=== PATIENT | female | born 1970 | race Caucasian/White ===

== ENCOUNTER 2018-08-02 21:30 | Emergency (ER) | payer BC ==
[2018-08-02 21:37] VITALS: BP 125/72; PULSE 87; RESP 18; TEMP 98.3
--- NOTE | 2018-08-02 22:16 | XR ---
EXAMINATION TYPE: XR forearm LT DATE OF EXAM: 08/02/2018 COMPARISON: NONE HISTORY: Bump and abrasion. Pain. TECHNIQUE: 2 views FINDINGS: Radius and ulna appear intact. I see no fracture nor dislocation. Carpal bones are intact. Elbow joint is intact. IMPRESSION: Negative left forearm exam.
--- NOTE | 2018-08-02 22:37 | ED ---
General Adult HPI - General Chief complaint: Extremity Injury, Upper Stated complaint: skin problem Time Seen by Provider: 08/02/18 22:23 Source: patient, RN notes reviewed Mode of arrival: ambulatory Limitations: no limitations - History of Present Illness Initial comments: Patient 48-year-old male presented to the emergency room today with chief of injury to the left forearm that occurred earlier today. She has not that she was walking up some stairs she slipped and she hit her left forearm on the railing per she states she noticed that it did swell up. She states it is locally tender. She states swelling has improved. She denies any other injury or complaint. Patient denies any recent fever, chills, shortness of breath, chest pain, back pain, abdominal pain, nausea or vomiting, headache, visual change. - Related Data Home Medications Medication Instructions Recorded Confirmed Ferrous Sulfate [Iron] 325 mg PO DAILY 08/02/18 08/02/18 Ibuprofen 800 mg PO TID-W/MEALS 08/02/18 08/02/18 Allergies Allergy/AdvReac Type Severity Reaction Status Date / Time ceftibuten [From Cedax] Allergy Unknown Verified 08/02/18 21:52 fluticasone propionate Allergy Unknown Verified 08/02/18 21:52 [From Advair Diskus] salmeterol xinafoate Allergy Unknown Verified 08/02/18 21:52 [From Advair Diskus] Review of Systems ROS Statement: Those systems with pertinent positive or pertinent negative responses have been documented in the HPI. ROS Other: All systems not noted in ROS Statement are negative. Past Medical History Past Medical History: No Reported History Additional Past Medical History / Comment(s): ARTHRITIS History of Any Multi-Drug Resistant Organisms: None Reported Past Surgical History: Cholecystectomy Past Psychological History: No Psychological Hx Reported Smoking Status: Current every day smoker Past Alcohol Use History: Occasional Past Drug Use History: None Reported General Exam - General Exam Comments Initial Comments: General: The patient is awake and alert, in no distress, and does not appear acutely ill. Neck: The neck is supple, there is no tenderness or JVD. Musculoskeletal: Patient does have bruising to the posterior mid shaft of the left forearm. Shows full range of motion. There is no bony tenderness to the left wrist hand, or elbow or shoulder. Patient locally tender over the bruise mid shaft. Radial pulses 2+. Strength 5/5. Full Range motion. Neurological: A&O x 3. CN II-XII intact, There are no obvious motor or sensory deficits. Coordination appears grossly intact. Speech is normal. Skin: Skin is warm and dry and no rashes or lesions are noted. Psychiatric: Normal mood and affect. Limitations: no limitations Course Vital Signs 08/02/18 21:33 Temperature 98.3 F Pulse Rate 87 Respiratory 18 Rate Blood Pressure 125/72 O2 Sat by Pulse 100 Oximetry Medical Decision Making - Medical Decision Making X-ray reviewed negative for any acute fracture dislocation. Results were discussed with patient. She is advised follow-up in 7-10 days if symptoms persist for repeat x-rays. Disposition Clinical Impression: Contusion of forearm, left Disposition: HOME SELF-CARE Condition: Good Instructions: Contusion in Adults (ED) Additional Instructions: Please continue to ice elevate the affected area. Please use Tylenol/ibuprofen as needed for pain. Please follow-up in 7-10 days for repeat x-rays if symptoms persist. Is patient prescribed a controlled substance at d/c from ED?: No Referrals: Alberto Merino MD [Primary Care Provider] - 1-2 days Time of Disposition: 22:37
== END 2018-08-02 22:42 | disposition home or self-care (01) ==
LOC: EC 21:30
DX: S50.12XA Contusion of left forearm, initial encounter (principal); M19.90 Unspecified osteoarthritis, unspecified site; F17.200 Nicotine dependence, unspecified, uncomplicated; Z88.1 Allergy status to other antibiotic agents; Z88.8 Allergy status to other drugs, medicaments and biological substances; Z79.1 Long term (current) use of non-steroidal anti-inflammatories (NSAID); Z79.899 Other long term (current) drug therapy; W01.198A Fall on same level from slipping, tripping and stumbling with subsequent striking against other object, initial encounter; Y93.01 Activity, walking, marching and hiking; Y92.009 Unspecified place in unspecified non-institutional (private) residence as the place of occurrence of the external cause
CPT/HCPCS: 99283

== ENCOUNTER 2018-12-22 12:06 | Inpatient (IN) | payer BC ==
[2018-12-22] MEDS ORDERED: HEPARIN SODIUM,PORCINE 5,000 UNIT/ML 1 ML VIAL SQ STA (12:30)
[2018-12-22] MEDS ORDERED: ASPIRIN 81 MG PO STA (12:30)
[2018-12-22] MEDS ORDERED: TICAGRELOR 90 MG TAB PO STA (12:31)
[2018-12-22] MEDS ORDERED: ATORVASTATIN 80 MG TAB PO STA (12:31)
[2018-12-22] MEDS ORDERED: ONDANSETRON 4 MG/2 ML VIAL IVP STA (12:32)
[2018-12-22] MEDS ORDERED: SODIUM CHLORIDE 0.9% 500 ML 500 ML IV STA (12:34)
--- NOTE | 2018-12-22 12:37 | ED ---
General Adult HPI - General Chief complaint: Chest Pain Stated complaint: Chest pain Time Seen by Provider: 12/22/18 12:13 Source: patient Mode of arrival: ambulatory Limitations: no limitations - History of Present Illness Initial comments: Dictation was produced using [employer] dictation software. please excuse any grammatical, word or spelling errors. Chief Complaint: 48-year-old female presents with 30 minutes of chest pain prior to arrival. History of Present Illness: This is a 48-year-old female presents with 30 minutes of chest pain prior to arrival. Patient states that her pain is crushing substernal chest pressure with radiation to the right shoulder. She states that the pain goes down her left upper extremity. Patient reports that she also has some diaphoresis and nausea. Patient states that her symptoms are very severe. The ROS documented in this emergency department record has been reviewed and confirmed by me. Those systems with pertinent positive or negative responses have been documented in the HPI. All other systems are other negative and/or noncontributory. PHYSICAL EXAM: General Impression: Alert and oriented x3, acute distress, clammy HEENT: Normocephalic atraumatic, extra-ocular movements intact, pupils equal and reactive to light bilaterally, mucous membranes moist. Cardiovascular: Heart regular rate and rhythm, S1&S2 audible, no murmurs, rubs or gallops Chest: Lungs clear to auscultation bilaterally, no rhonchi, no wheeze, no rales Abdomen: Bowel sounds present, abdomen soft, non-tender, non-distended, no organomegaly Musculoskeletal: Pulses present and equal in all extremities, no peripheral edema Motor: Power 5/5 bilaterally, no focal deficits noted Neurological: CN II-XII grossly intact, no focal motor or sensory deficits noted Skin: Intact with no visualized rashes Psych: Normal affect and mood ED course: 48 y Old female with symptoms of acute coronary syndrome. Upon arrival are within acceptable limits. EKG shows inferior elevation OK. Posterior EKG did not show any posterior OK. There is reciprocal changes in the high lateral and anterior precordial leads. Old STEMI was paged. Patient given aspirin and 4000 bolus heparin. Patient be dispositioned to cardiac [facility] for coronary artery angiogram and possible angioplasty. - Related Data Home Medications Medication Instructions Recorded Confirmed Ferrous Sulfate [Iron] 325 mg PO DAILY 08/02/18 08/02/18 Ibuprofen 800 mg PO TID-W/MEALS 08/02/18 08/02/18 Allergies Allergy/AdvReac Type Severity Reaction Status Date / Time ceftibuten [From Cedax] Allergy Unknown Verified 12/22/18 12:11 fluticasone propionate Allergy Unknown Verified 12/22/18 12:11 [From Advair Diskus] salmeterol xinafoate Allergy Unknown Verified 12/22/18 12:11 [From Advair Diskus] Review of Systems ROS Statement: Those systems with pertinent positive or pertinent negative responses have been documented in the HPI. ROS Other: All systems not noted in ROS Statement are negative. Past Medical History Past Medical History: No Reported History Additional Past Medical History / Comment(s): ARTHRITIS History of Any Multi-Drug Resistant Organisms: None Reported Past Surgical History: Cholecystectomy Past Psychological History: No Psychological Hx Reported Smoking Status: Current every day smoker Past Alcohol Use History: Occasional Past Drug Use History: None Reported General Exam Limitations: no limitations Course Vital Signs 12/22/18 12:09 Temperature 97.7 F Pulse Rate 66 Respiratory 24 Rate Blood Pressure 142/84 O2 Sat by Pulse 99 Oximetry Disposition Clinical Impression: ST elevation myocardial infarction (STEMI) Disposition: ADMITTED IP TO THIS HOSP Condition: Critical Referrals: Alberto Merino MD [Primary Care Provider] - 1-2 days Decision Time: 12:40
[2018-12-22] MEDS ORDERED: NALOXONE 0.4 MG/ML 1 ML VIAL IV PRN (12:38)
[2018-12-22] MEDS ORDERED: fentaNYL (PF) 50 MCG/ML 2 ML AMP ONE (12:51)
[2018-12-22] MEDS ORDERED: LIDOCAINE 2% INJ 20 MG/ML SQ ONE (12:55)
[2018-12-22] MEDS ORDERED: MIDAZOLAM 2 MG/2 ML VIAL IVP ONE (12:55)
[2018-12-22] MEDS ORDERED: fentaNYL (PF) 50 MCG/ML 2 ML AMP IVP ONE (12:55)
[2018-12-22] MEDS ORDERED: SODIUM CHLORIDE 0.9% 1,000 ML IV ONE (12:56)
[2018-12-22 12:59] LABS: Basophils % (A) 0 %; Eosinophils # (A) 0.4 k/uL (0-0.7); Eosinophils % (A) 5 %; HCT 38.2 % (34.0-46.0); HGB 12.9 gm/dL (11.4-16.0); Lymphocytes # (A) 1.2 k/uL (1.0-4.8); Lymphocytes % (A) 18 %; MCH 28.6 pg (25.0-35.0); MCHC 33.7 g/dL (31.0-37.0); MCV 84.9 fL (80.0-100.0); Mean Platelet Volume 6.6; Monocytes # (A) 0.3 k/uL (0-1.0); Monocytes % (A) 4 %; Neutrophils # (A) 4.7 k/uL (1.3-7.7); Neutrophils % (A) 70 %; Platelet Count 223 k/uL (150-450); RDW 13.4 % (11.5-15.5); WBC 6.7 k/uL (3.8-10.6)
[2018-12-22] MEDS ORDERED: NITROGLYCERIN SL TABS 0.4 MG TAB SUBLINGUAL ONE (13:05)
[2018-12-22] MEDS ORDERED: NITROGLYCERIN 1000MCG/10ML SYRINGE INTRACORON ONE ×2 (13:06)
[2018-12-22 13:08] LABS: ALT 26 U/L (9-52); AST 16 U/L (14-36); Albumin 4.1 g/dL (3.5-5.0); Alkaline Phosphatase 53 U/L (38-126); Anion Gap 9 mmol/L; Blood Urea Nitrogen 14 mg/dL (7-17); Calcium 9.3 mg/dL (8.4-10.2); Carbon Dioxide 21 mmol/L (22-30); Chloride 109 mmol/L (98-107); Glucose 132 mg/dL (74-99); Potassium 3.4 mmol/L (3.5-5.1); Sodium 139 mmol/L (137-145); Total Bilirubin 0.8 mg/dL (0.2-1.3); Total Protein 6.9 g/dL (6.3-8.2)
[2018-12-22 13:17] LABS: Creatine Kinase 80 U/L (30-135)
[2018-12-22] MEDS ORDERED: NITROGLYCERIN-D5W PMX 50 MG in DEXTROSE/WATER 1 250ML.BAG IV ONE (13:22)
[2018-12-22] MEDS ORDERED: IOPAMIDOL-370 150ML BTL INJ ONE (13:26)
[2018-12-22 13:30] LABS: Creatine Kinase MB 0.7 ng/mL (0.0-2.4); Troponin I <0.012 ng/mL (0.000-0.034)
[2018-12-22] MEDS ORDERED: RX INFO: IV CONTRAST WAS GIVEN 1 EACH MISC MISCELLANE PRN (13:30)
[2018-12-22 13:32] LABS: INR 0.9 (<1.2); Prothrombin Time 9.7 sec (9.0-12.0)
[2018-12-22 13:37] LABS: Partial Thromboplastin Time 19.5 sec (22.0-30.0)
[2018-12-22 13:52] LABS: Glucose,Whole Blood 112 mg/dL (75-99)
--- NOTE | 2018-12-22 14:00 | CONS ---
CONSULTATION Mrs. Mijares is a 48-year-old female who started having a chest discomfort about 1 hour prior to coming to the emergency room. The pain was moderate to severe, associated with some nausea. In the emergency room, patient's EKG showed mild J-point elevation and minimal ST elevation in the inferior leads and with some ST depression in V2 and V3 suggestive of acute inferior wall myocardial infarction. In view of that, the patient was recommended to have a cardiac catheterization for definitive diagnosis. Patient denies any history of diabetes or hypertension. She does smoke. She is not taking any other medications other than the pain medications. PAST MEDICAL HISTORY: No history of any major surgeries. REVIEW OF THE SYSTEM: Unremarkable. Denies any history of a GI or bleeding or stroke or seizures. PHYSICAL EXAMINATION: In the emergency room revealed the patient is a 48-year-old female who was in moderate to severe discomfort. Blood pressure was 150/80 mmHg. HEENT examination was negative. Neck was supple. There was no increase in jugular venous pressure. Both the carotid pulses are felt. There is no bruit. Chest is symmetrical, heart the PMI is not felt. First and second heart sounds are normal. There is no evidence of any murmur. Lungs are clinically clear to auscultation and percussion. Abdomen is soft. Liver and spleen are not enlarged. Bowel sounds are heard. Extremities, peripheral pulsations are 2+. EKG showed mild ST-segment elevation with ST depression in V2 and V3. IMPRESSION: Acute inferior wall myocardial infarction. Patient was recommended to proceed with a cardiac catheterization and primary angioplasty. MMODL / IJN: [id number] /
--- NOTE | 2018-12-22 14:07 | CC ---
CARDIAC CATHETERIZATION REPORT This patient came to the emergency room with a acute inferior wall myocardial infarction and was advised urgent cardiac catheterization. PROCEDURE: The right groin was prepped and draped in the usual manner and the skin was infiltrated with 2% Xylocaine. The right femoral artery was entered using Seldinger technique, a #6- [place] sheath was placed in. Selective coronary angiography was then performed in multiple projections and the left ventriculography was performed. Patient tolerated the procedure well. Sheath was removed and good hemostasis was achieved with the use of Angio-Seal. Moderate sedation was used. Total sedation time was 24 minutes. HEMODYNAMICS: The left ventricular end-diastolic pressure is 12 mmHg prior to angiography. No gradient is noted across the aortic valve. SELECTIVE CORONARY ANGIOGRAPHY: Left main coronary artery is normal and patent. LAD is a good caliber blood vessel and gives rise to a good size diagonal branch. LAD and its branches are normal. Circumflex coronary artery is a nondominant blood vessel. It gives rise to a good size obtuse marginal branch and is normal. Right coronary artery is dominant in distribution and gives rise to PDA and PLV branch. The PLV branch has a long area of smooth narrowing. Patient was given intracoronary nitroglycerin x2 and repeat angiogram still showed persistent long area of narrowing which raised the possibility of a possible spontaneous dissection. There was YENY-3 flow. Left ventriculography reveals inferior basal hypokinesia with ejection fraction of 55%. FINAL IMPRESSION: This study shows a long area of 90% smooth narrowing in the PLV branch of the right coronary artery. This narrowing persisted in spite of the intravenous nitroglycerin. The films were reviewed with Dr. Paul Rodriguez. A possibility of spontaneous dissection was considered in view that this is a young woman. There was a YENY grade flow. Patient's pain is the patient is pain-free at present and the EKG changes are resolved in view of that, we will continue the patient on medical treatment and serial EKGs. Cardiac enzymes will be obtained. We will treat the patient with nitroglycerin aspirin and Plavix. MMODL / IJN: [id number] /
[2018-12-22 14:32] VITALS: BMI 27.3
[2018-12-22] MEDS: NITROGLYCERIN-D5W PMX 50 MG in DEXTROSE/WATER 1 250ML.BAG IV SCH (14:50)
--- NOTE | 2018-12-22 15:47 | P.HPIM ---
History of Present Illness H&P Date: 12/22/18 Chief Complaint: Angina This is a 48-year-old white female with known history of tobacco abuse who had sudden onset of angina with shortness of breath. Radiation to the neck and jaw area was noted. She was immediately evaluated in the emergency room found to have ST elevation myocardial infarctions and had cardiac catheterization which did not show any dominant lesion. The patient is felt to have vasospastic element. She is now seen postoperatively and doing quite well hemodynamically stable. I saw the patient actually last week with her and she was fairly stable without symptomatology. There was no provocative or palliative description given. Review of Systems Constitutional: Denies chills, Denies fever Eyes: denies blurred vision, denies pain Ears, nose, mouth and throat: Denies headache, Denies sore throat Cardiovascular: Reports chest pain, Reports dyspnea on exertion Respiratory: Denies cough Gastrointestinal: Denies abdominal pain, Denies diarrhea, Denies nausea, Denies vomiting Genitourinary: Reports as per HPI Musculoskeletal: Denies myalgias Past Medical History Past Medical History: No Reported History, Skin Disorder Additional Past Medical History / Comment(s): ARTHRITIS, Exzema History of Any Multi-Drug Resistant Organisms: None Reported Past Surgical History: Cholecystectomy, Tubal Ligation Additional Past Surgical History / Comment(s): 12/22/18 Came in as a stemi--no intervention required during heart cath Past Anesthesia/Blood Transfusion Reactions: No Reported Reaction Smoking Status: Current every day smoker - Past Family History Mother History Unknown: Yes Brother(s) History Unknown: Yes Family Medical History: No Reported History Medications and Allergies Home Medications Medication Instructions Recorded Confirmed Type Ferrous Sulfate [Iron] 325 mg PO DAILY 08/02/18 12/22/18 History Ibuprofen 800 mg PO TID-W/MEALS 08/02/18 12/22/18 History Allergies Allergy/AdvReac Type Severity Reaction Status Date / Time ceftibuten [From Cedax] Allergy Unknown Verified 12/22/18 14:30 fluticasone propionate Allergy Unknown Verified 12/22/18 14:30 [From Advair Diskus] salmeterol xinafoate Allergy Unknown Verified 12/22/18 14:30 [From Advair Diskus] Physical Exam Vitals: Vital Signs Temp Pulse Resp BP Pulse Ox 12/22/18 15:00 71 12 138/76 98 12/22/18 14:45 74 13 140/82 97 12/22/18 14:30 67 8 L 146/79 95 12/22/18 14:15 66 8 L 141/82 96 12/22/18 14:00 68 18 127/79 98 12/22/18 13:45 97.5 F L 74 12 135/81 98 12/22/18 12:09 97.7 F 66 24 142/84 99 Intake and Output 12/22/18 12/22/18 12/22/18 06:59 14:59 22:59 Intake Total 146 20 Output Total 600 Balance 146 -580 Intake: IV 146 20 0.9 NS 40 20 Output: Urine 600 Other: Weight 70.307 kg - Constitutional General appearance: cooperative, obese - EENT Eyes: EOMI - Neck Neck: no lymphadenopathy - Respiratory Respiratory: bilateral: CTA - Cardiovascular Rhythm: regular Heart sounds: normal: S1, S2 Abnormal Heart Sounds: no S3 Gallop - Gastrointestinal General gastrointestinal: soft, no tenderness - Neurologic Neurologic: CNII-XII intact - Musculoskeletal Musculoskeletal: strength equal bilaterally - Psychiatric Psychiatric: A&O x's 3, appropriate affect, no intact judgment & insight Results CBC & Chem 7: 12/22/18 12:53 12/22/18 12:53 Labs: Abnormal Lab Results - Last 24 Hours (Table) 12/22/18 12/22/18 12/22/18 Range/Units 12:53 12:53 13:40 APTT 19.5 L (22.0-30.0) sec Potassium 3.4 L (3.5-5.1) mmol/L Chloride 109 H (98-107) mmol/L Carbon Dioxide 21 L (22-30) mmol/L Glucose 132 H (74-99) mg/dL POC Glucose (mg/dL) 112 H (75-99) mg/dL Troponin I (0.000-0.034) ng/mL 12/22/18 Range/Units 13:46 APTT (22.0-30.0) sec Potassium (3.5-5.1) mmol/L Chloride (98-107) mmol/L Carbon Dioxide (22-30) mmol/L Glucose (74-99) mg/dL POC Glucose (mg/dL) (75-99) mg/dL Troponin I 2.280 H* (0.000-0.034) ng/mL Thrombosis Risk Factor Assmnt - Choose All That Apply Each Factor Represents 1 point: Medical pt on bed rest Other Risk Factors: No Other congenital or acquired thrombophilia - If yes, enter type in comment: No Thrombosis Risk Factor Assessment Total Risk Factor Score: 1 Thrombosis Risk Factor Assessment Level: Low Risk Assessment and Plan (1) Tobacco abuse Current Visit: Yes Status: Acute Code(s): Z72.0 - TOBACCO USE SNOMED Code( s): 927932455 (2) ST elevation myocardial infarction (STEMI) Current Visit: Yes Status: Acute Code(s): I21.3 - ST ELEVATION (STEMI) MYOCARDIAL INFARCTION OF [facility] SITE SNOMED Code(s): 238849689 Plan: Post myocardial infraction treatment. Appreciate cardiology input. Check CBC and CMP in a.m. Tobacco cessation discussed at length. Reconcile medications as necessary. Dr. Christian's group will be covering for the weekend. Time with Patient: Greater than 30
[2018-12-22] MEDS ORDERED: ACETAMINOPHEN TAB 325 MG TAB PO PRN (18:13)
[2018-12-22] MEDS ORDERED: Potassium Replacement Protocol 1 EACH MISC MISCELLANE PRN (20:25)
[2018-12-22] MEDS: METOPROLOL TARTRATE 25 MG TAB PO SCH (20:37)
[2018-12-22] MEDS: POTASSIUM CHLORIDE ER 20 MEQ TAB.ER PO SCH ×2 (20:37→22:01)
[2018-12-22] MEDS: NICOTINE 14MG/24HR PATCH TRANSDERM SCH (20:38)
[2018-12-23 05:39] LABS: Basophils % (A) 1 %; Eosinophils # (A) 0.3 k/uL (0-0.7); Eosinophils % (A) 6 %; HCT 33.9 % (34.0-46.0); Lymphocytes # (A) 1.2 k/uL (1.0-4.8); Lymphocytes % (A) 19 %; MCH 28.6 pg (25.0-35.0); MCHC 32.6 g/dL (31.0-37.0); MCV 87.9 fL (80.0-100.0); Mean Platelet Volume 7.3; Monocytes # (A) 0.4 k/uL (0-1.0); Monocytes % (A) 7 %; Neutrophils # (A) 4.1 k/uL (1.3-7.7); Neutrophils % (A) 67 %; Platelet Count 194 k/uL (150-450); RBC 3.85 m/uL (3.80-5.40); RDW 13.8 % (11.5-15.5); WBC 6.1 k/uL (3.8-10.6)
[2018-12-23 05:47] LABS: Anion Gap 4 mmol/L; Blood Urea Nitrogen 12 mg/dL (7-17); Calcium 8.6 mg/dL (8.4-10.2); Carbon Dioxide 24 mmol/L (22-30); Chloride 110 mmol/L (98-107); Glucose 90 mg/dL (74-99); Potassium 3.8 mmol/L (3.5-5.1); Sodium 138 mmol/L (137-145)
[2018-12-23] MEDS ORDERED: Potassium Replacement Protocol 1 EACH MISC MISCELLANE PRN (05:57)
[2018-12-23] MEDS ORDERED: POTASSIUM CHLORIDE ER 20 MEQ TAB.ER PO SCH (06:00)
[2018-12-23] MEDS: NICOTINE 14MG/24HR PATCH TRANSDERM SCH (08:16)
[2018-12-23] MEDS: ASPIRIN 81 MG PO SCH (08:16)
[2018-12-23] MEDS: TICAGRELOR 90 MG TAB PO SCH ×2 (08:16→20:44)
[2018-12-23] MEDS: METOPROLOL TARTRATE 25 MG TAB PO SCH ×2 (08:16→20:44)
--- NOTE | 2018-12-23 10:28 | ECHOF ---
Referral Reason:assess lvf MEASUREMENTS -------- HEIGHT: 165.1 cm WEIGHT: 70.3 kg BP: 141/82 IVSd: 0.9 cm (0.6 - 1.1) LVIDd: 3.8 cm (3.9 - 5.3) LVPWd: 1.0 cm (0.6 - 1.1) IVSs: 1.1 cm LVIDs: 3.2 cm LVPWs: 1.1 cm LAESV Index (A-L): 18.77 ml/m Ao Diam: 3.0 cm (2.0 - 3.7) AV Cusp: 1.4 cm (1.5 - 2.6) LA Diam: 2.2 cm (2.7 - 3.8) EPSS: 1.0 cm MV E Juan Pablo: 0.98 m/s MV DecT: 237 ms MV A Juan Pablo: 1.18 m/s MV E/A Ratio: 0.83 RAP: 5.00 mmHg RVSP: 22.15 mmHg MV EF SLOPE: 44.50 mm/s (70 - 150) MV EXCURSION: 1.29 cm (> 18.000) FINDINGS -------- Sinus rhythm. This was a technically difficult study with suboptimal views. The left ventricular size is normal. Left ventricular wall thickness is normal. Overall left vent ricular systolic function is low-normal with, an EF between 50 - 55 %. Basal inferior LV wall motio n is hypokinetic. Basal Posterior hypokinesis The RV was not well visualized. Normal LA size by volume 22+/-6 ml/m2. The right atrium was not well visualized. 3 ml of Lumason was utilized for enhancement of images. Aortic valve is trileaflet and is mildly thickened. Trace to mild aortic regurgitation. There is no evidence of aortic stenosis. The mitral valve leaflets are mildly thickened. There is trace to mild mitral regurgitation. Trace tricuspid regurgitation present. Right ventricular systolic pressure is normal at < 35 mmHg. There is no evidence of pulmonary hypertension. The pulmonic valve was not well visualized. The aortic root size is normal. Normal inferior vena cava with normal inspiratory collapse consistent with estimated right atrial pre ssure of 5 mmHg. There is a trivial pericardial effusion present. CONCLUSIONS -------- 1. Sinus rhythm. 2. This was a technically difficult study with suboptimal views. 3. The left ventricular size is normal. 4. Left ventricular wall thickness is normal. 5. Basal inferior LV wall motion is hypokinetic. 6. Basal Posterior hypokinesis 7. The RV was not well visualized. 8. Normal LA size by volume 22+/-6 ml/m2. 9. The right atrium was not well visualized. 10. 3 ml of Lumason was utilized for enhancement of images. 11. Aortic valve is trileaflet and is mildly thickened. 12. Trace to mild aortic regurgitation. 13. There is no evidence of aortic stenosis. 14. The mitral valve leaflets are mildly thickened. 15. There is trace to mild mitral regurgitation. 16. Trace tricuspid regurgitation present. 17. Right ventricular systolic pressure is normal at < 35 mmHg. 18. There is no evidence of pulmonary hypertension. 19. The pulmonic valve was not well visualized. 20. The aortic root size is normal. 21. There is a trivial pericardial effusion present. BOAT REPAIRER: Edson Coyle RDCS
--- NOTE | 2018-12-23 12:59 | PN ---
PROGRESS NOTE This patient came with acute inferior wall myocardial infarction. Patient's cardiac catheterization was suggestive of spontaneous coronary dissection. Patient's EKG was normalized and she was chest pain free. In view of that, medical treatment was recommended. Patient is doing well. She denies any chest pain or shortness of breath. EKG shows resolution of ST changes. Patient's blood pressure is 131/59 mmHg. First and second heart sounds are normal. Lungs are clear to auscultation and percussion. Right groin is normal. Patient's maximum troponin was 23. PLAN: We will continue the current medications. Echocardiogram shows a small area of inferior basal hypokinesia. If patient remains pain free, we will continue the patient on medical treatment and follow with a stress test as outpatient. MMODL / IJN: [id number] /
[2018-12-23] MEDS: NITROGLYCERIN-D5W PMX 50 MG in DEXTROSE/WATER 1 250ML.BAG IV SCH (20:06)
[2018-12-23] MEDS: ATORVASTATIN 40 MG TAB PO SCH (20:44)
--- NOTE | 2018-12-23 22:20 | P.PN ---
Subjective Progress Note Date: 12/23/18 Principal diagnosis: chest pain This is a 48-year-old white female with known history of tobacco abuse who had sudden onset of angina with shortness of breath. Radiation to the neck and jaw area was noted. She was immediately evaluated in the emergency room found to have ST elevation myocardial infarctions and had cardiac catheterization which did not show any dominant lesion. The patient is felt to have vasospastic element. She is now seen postoperatively and doing quite well hemodynamically stable. I saw the patient actually last week with her and she was fairly stable without symptomatology. Objective - Vital Signs Vital signs: Vital Signs Temp 97.8 F 12/23/18 04:00 Pulse 66 12/23/18 08:00 Resp 17 12/23/18 08:00 BP 126/79 12/23/18 08:00 Pulse Ox 98 12/23/18 08:17 Intake & Output 12/22/18 12/23/18 12/23/18 18:59 06:59 18:59 Intake Total 206 520 20 Output Total 1100 250 Balance -894 270 20 Weight 70.307 kg 73.2 kg Intake: IV 206 320 20 0.9 NS 100 320 20 Oral 200 Output: Urine 1100 250 Other: Voiding Method Bedpan Bedside Commode # Voids 1 - Constitutional General appearance: Present: no acute distress - EENT Eyes: Present: EOMI, PERRLA - Neck Neck: Present: normal ROM - Respiratory Respiratory: bilateral: CTA - Cardiovascular Rhythm: regular Heart sounds: normal: S1, S2 - Gastrointestinal General gastrointestinal: Present: soft - Labs CBC & Chem 7: 12/23/18 05:24 12/23/18 05:24 Labs: Abnormal Lab Results - Last 24 Hours (Table) 12/22/18 12/22/18 12/22/18 Range/Units 12:53 12:53 13:40 Hgb (11.4-16.0) gm/dL Hct (34.0-46.0) % APTT 19.5 L (22.0-30.0) sec Potassium 3.4 L (3.5-5.1) mmol/L Chloride 109 H (98-107) mmol/L Carbon Dioxide 21 L (22-30) mmol/L Glucose 132 H (74-99) mg/dL POC Glucose (mg/dL) 112 H (75-99) mg/dL Troponin I (0.000-0.034) ng/mL 12/22/18 12/22/18 12/23/18 Range/Units 13:46 19:35 05:24 Hgb (11.4-16.0) gm/dL Hct (34.0-46.0) % APTT (22.0-30.0) sec Potassium (3.5-5.1) mmol/L Chloride (98-107) mmol/L Carbon Dioxide (22-30) mmol/L Glucose (74-99) mg/dL POC Glucose (mg/dL) (75-99) mg/dL Troponin I 2.280 H* 23.000 H* 14.100 H* (0.000-0.034) ng/mL 12/23/18 12/23/18 Range/Units 05:24 05:24 Hgb 11.0 L (11.4-16.0) gm/dL Hct 33.9 L (34.0-46.0) % APTT (22.0-30.0) sec Potassium (3.5-5.1) mmol/L Chloride 110 H (98-107) mmol/L Carbon Dioxide (22-30) mmol/L Glucose (74-99) mg/dL POC Glucose (mg/dL) (75-99) mg/dL Troponin I (0.000-0.034) ng/mL Assessment and Plan Assessment: 1. Ac Inferior wall OH; - s/p cardiac catheterization- spontaneous coronary dissection - cardiology recommendations are noted and appreciated; aspirin; statins; BBl and Brillinta 2. Hypertension; stable on metoprolol 3. DVT Ppx; s/q heparin Code Status; full code
[2018-12-24 04:44] LABS: Basophils % (A) 0 %; Eosinophils # (A) 0.5 k/uL (0-0.7); Eosinophils % (A) 8 %; HCT 32.7 % (34.0-46.0); HGB 11.2 gm/dL (11.4-16.0); Lymphocytes # (A) 1.3 k/uL (1.0-4.8); Lymphocytes % (A) 21 %; MCH 29.7 pg (25.0-35.0); MCHC 34.3 g/dL (31.0-37.0); MCV 86.6 fL (80.0-100.0); Mean Platelet Volume 6.6; Monocytes # (A) 0.3 k/uL (0-1.0); Monocytes % (A) 6 %; Neutrophils % (A) 64 %; Platelet Count 182 k/uL (150-450); RBC 3.77 m/uL (3.80-5.40); RDW 13.3 % (11.5-15.5); WBC 6.3 k/uL (3.8-10.6)
[2018-12-24 04:55] LABS: Anion Gap 4 mmol/L; Blood Urea Nitrogen 13 mg/dL (7-17); Calcium 8.6 mg/dL (8.4-10.2); Carbon Dioxide 24 mmol/L (22-30); Chloride 110 mmol/L (98-107); Glucose 93 mg/dL (74-99); Magnesium 1.9 mg/dL (1.6-2.3); Potassium 3.7 mmol/L (3.5-5.1); Sodium 138 mmol/L (137-145)
[2018-12-24] MEDS ORDERED: Potassium Replacement Protocol 1 EACH MISC MISCELLANE PRN (05:03)
[2018-12-24] MEDS: NICOTINE 14MG/24HR PATCH TRANSDERM SCH (08:28)
[2018-12-24] MEDS: METOPROLOL TARTRATE 25 MG TAB PO SCH ×2 (08:28→21:14)
[2018-12-24] MEDS: TICAGRELOR 90 MG TAB PO SCH ×2 (08:29→21:14)
[2018-12-24] MEDS: ASPIRIN 81 MG PO SCH (08:29)
[2018-12-24] MEDS ORDERED: POTASSIUM CHLORIDE ER 20 MEQ TAB.ER PO SCH (09:00)
--- NOTE | 2018-12-24 13:18 | PN ---
PROGRESS NOTE This patient came with acute inferior wall myocardial infarction. Cardiac catheterization was suggestive of a spontaneous dissection involving the PLV branch. Because of the too good YENY-3 flow, patient was recommended to have medical treatment. She has been doing well. Denies any anginal pains. Patient remains short of breath. The echocardiogram shows a small area of inferobasal hypokinesia. Blood pressure is 131/68 mmHg. First and second heart sounds are heard. Lungs are clinically clear to auscultation and percussion. The patient will be ambulated and if she is stable, she will be discharged home tomorrow. We will follow her with a stress test in 4-6 weeks to rule out any evidence of significant ischemia. MMODL / IJN: [id number] /
[2018-12-24] MEDS: ATORVASTATIN 40 MG TAB PO SCH (21:14)
[2018-12-25 04:47] LABS: Basophils % (A) 0 %; Eosinophils # (A) 0.6 k/uL (0-0.7); Eosinophils % (A) 8 %; HCT 35.9 % (34.0-46.0); HGB 12.1 gm/dL (11.4-16.0); Lymphocytes # (A) 1.6 k/uL (1.0-4.8); Lymphocytes % (A) 22 %; MCHC 33.6 g/dL (31.0-37.0); MCV 86.2 fL (80.0-100.0); Mean Platelet Volume 6.8; Monocytes # (A) 0.4 k/uL (0-1.0); Monocytes % (A) 6 %; Neutrophils # (A) 4.3 k/uL (1.3-7.7); Neutrophils % (A) 62 %; Platelet Count 203 k/uL (150-450); RBC 4.16 m/uL (3.80-5.40); RDW 13.5 % (11.5-15.5)
[2018-12-25 05:00] LABS: Anion Gap 4 mmol/L; Blood Urea Nitrogen 13 mg/dL (7-17); Calcium 9.1 mg/dL (8.4-10.2); Carbon Dioxide 25 mmol/L (22-30); Chloride 109 mmol/L (98-107); Glucose 94 mg/dL (74-99); Magnesium 1.9 mg/dL (1.6-2.3); Potassium 4.1 mmol/L (3.5-5.1); Sodium 138 mmol/L (137-145)
--- NOTE | 2018-12-25 08:17 | P.DS ---
Providers Date of admission: 12/22/18 12:38 Attending physician: Alberto Merino Consults: 12/22/18 12:38 Consult Physician Routine Consulting Provider: Luis Manuel Rosado Consult Reason/Comments: stemi Do you want consulting provider notified?: Already Contacted Primary care physician: Alberto Merino - Discharge Diagnosis(es) (1) Tobacco abuse Current Visit: Yes Status: Acute (2) ST elevation myocardial infarction (STEMI) Current Visit: Yes Status: Acute Hospital Course: This is a discharge summary 48-year-old white female who essentially had inferior lateral myocardial infraction due to probable dissection and vasospasm of the PLV. The patient was stabilized with standardize medical treatment and is now stabilizing. She will follow-up with cardiology in about 4-6 weeks for appropriate stress testing. She is tolerating diet pain-free and tolerating medications at this time. Once cleared by consultants, she will discharged in stable condition to follow-up with me in about one week Patient Condition at Discharge: Stable Plan - Discharge Summary Discharge Rx Participant: No New Discharge Prescriptions: New Acetaminophen Tab [Tylenol] 650 mg PO Q6HR PRN tab PRN Reason: Fever and/ or Mild Pain Aspirin 81 mg PO DAILY chew Atorvastatin [Lipitor] 40 mg PO HS #30 tab Metoprolol Tartrate [Lopressor] 25 mg PO BID #60 tab Nicotine 14Mg/24Hr Patch [Habitrol] 1 patch TRANSDERM DAILY #30 patch Ticagrelor [Brilinta] 90 mg PO BID #60 tab Continue Ferrous Sulfate [Iron] 325 mg PO DAILY Discontinued Ibuprofen 800 mg PO TID-W/MEALS PRN PRN Reason: Pain Discharge Medication List Ferrous Sulfate [Iron] 325 mg PO DAILY 08/02/18 [History] Acetaminophen Tab [Tylenol] 650 mg PO Q6HR PRN tab 12/25/18 [Rx] Aspirin 81 mg PO DAILY chew 12/25/18 [Rx] Atorvastatin [Lipitor] 40 mg PO HS #30 tab 12/25/18 [Rx] Metoprolol Tartrate [Lopressor] 25 mg PO BID #60 tab 12/25/18 [Rx] Nicotine 14Mg/24Hr Patch [Habitrol] 1 patch TRANSDERM DAILY #30 patch 12/25/18 [ Rx] Ticagrelor [Brilinta] 90 mg PO BID #60 tab 12/25/18 [Rx] Follow up Appointment(s)/Referral(s): Alberto Merino MD [Primary Care Provider] - 1 Week Discharge Disposition: HOME SELF-CARE
--- NOTE | 2018-12-25 08:39 | P.PN ---
Subjective Progress Note Date: 12/24/18 Principal diagnosis: chest pain This is a 48-year-old white female with known history of tobacco abuse who had sudden onset of angina with shortness of breath. Radiation to the neck and jaw area was noted. She was immediately evaluated in the emergency room found to have ST elevation myocardial infarctions and had cardiac catheterization which did not show any dominant lesion. The patient is felt to have vasospastic element. She is now seen postoperatively and doing quite well hemodynamically stable. I saw the patient actually last week with her and she was fairly stable without symptomatology. 12/24/18 Patient is seen and evaluated in the room at bedside; patient is awake alert and oriented 3; hemodynamically stable with a blood pressure 131/68 Cardiology is following patient and recommending to increase ambulation and possible discharge home tomorrow on current medications if remains chest pain- free Patient is recommended to have a stress test in 4-6 weeks to rule out any evidence of ischemia as an outpatient Objective - Vital Signs Vital signs: Vital Signs Temp 98.2 F 12/24/18 04:00 Pulse 69 12/24/18 09:00 Resp 21 12/24/18 09:00 BP 113/65 12/24/18 09:00 Pulse Ox 95 12/24/18 09:00 Intake & Output 12/23/18 12/24/18 12/24/18 18:59 06:59 18:59 Intake Total 512 581.625 343 Output Total 60 0 0 Balance 452 581.625 343 Weight 74.3 kg Intake: IV 100 220 40 0.9 NS 100 220 40 Intake, IV Titration 12 111.625 3 Amount Nitroglycerin-D5w Pmx 50 3 mg In Dextrose/Water 1 250ml.bag @ 0 mls/hr IV . [facility] Rx#: [id number] Nitroglycerin-D5w Pmx 50 12 111.625 mg In Dextrose/Water 1 250ml.bag @ 10 MCG/MIN 3 mls/hr IV .Q24H [facility] [place] Rx#: [id number] Oral 400 250 300 Output: Urine 60 0 0 Other: Voiding Method Bedside Commode Bedside Commode Toilet # Voids 1 1 1 # Bowel Movements 1 - Exam PHYSICAL EXAMINATION: GENERAL: The patient is alert and oriented x3, not in any acute distress. Well developed, well nourished. HEENT: Pupils are round and equally reacting to light. EOMI. No scleral icterus. No conjunctival pallor. Normocephalic, atraumatic. No pharyngeal erythema. No thyromegaly. CARDIOVASCULAR: S1 and S2 present. No murmurs, rubs, or gallops. PULMONARY: Chest is clear to auscultation, no wheezing or crackles. ABDOMEN: Soft, nontender, nondistended, normoactive bowel sounds. No palpable organomegaly. MUSCULOSKELETAL: No joint swelling or deformity. EXTREMITIES: No cyanosis, clubbing, or pedal edema. NEUROLOGICAL: Gross neurological examination did not reveal any focal deficits. SKIN: No rashes. - Labs CBC & Chem 7: 12/25/18 04:29 12/25/18 04:29 Labs: Abnormal Lab Results - Last 24 Hours (Table) 12/23/18 12/24/18 12/24/18 Range/Units 19:39 04:29 04:29 RBC 3.77 L (3.80-5.40) m/uL Hgb 11.2 L (11.4-16.0) gm/dL Hct 32.7 L (34.0-46.0) % Chloride 110 H (98-107) mmol/L Troponin I 6.000 H* (0.000-0.034) ng/mL Assessment and Plan Assessment: 1. Ac Inferior wall MA; - s/p cardiac catheterization- spontaneous coronary dissection - cardiology recommendations are noted and appreciated; aspirin; statins; BBl and Brillinta 2. Hypertension; stable on metoprolol 3. DVT Ppx; s/q heparin Code Status; full code
[2018-12-25] MEDS: TICAGRELOR 90 MG TAB PO SCH (09:17)
[2018-12-25] MEDS: METOPROLOL TARTRATE 25 MG TAB PO SCH (09:17)
[2018-12-25] MEDS: NICOTINE 14MG/24HR PATCH TRANSDERM SCH (09:17)
[2018-12-25] MEDS: ASPIRIN 81 MG PO SCH (09:17)
[2018-12-25 11:20] VITALS: BP 138/68; PULSE 84; RESP 18; TEMP 98
== END 2018-12-25 11:50 | disposition home or self-care (01) | DRG 280 ==
LOC: EC 12:06 → 2SICU 12:38
PROVIDERS: ADMIT Family Medicine; ATTEND Family Medicine
PROC: B2111ZZ Fluoroscopy of Multiple Coronary Arteries using Low Osmolar Contrast (ICD-10-PCS; 2018-12-22)
PROC: B2151ZZ Fluoroscopy of Left Heart using Low Osmolar Contrast (ICD-10-PCS; 2018-12-22)
PROC: 4A023N7 Measurement of Cardiac Sampling and Pressure, Left Heart, Percutaneous Approach (ICD-10-PCS; principal; 2018-12-22 14:50)
DX: I21.19 ST elevation (STEMI) myocardial infarction involving other coronary artery of inferior wall (principal); I25.42 Coronary artery dissection; I10 Essential (primary) hypertension; F17.200 Nicotine dependence, unspecified, uncomplicated; M19.90 Unspecified osteoarthritis, unspecified site; Z71.6 Tobacco abuse counseling; Z79.899 Other long term (current) drug therapy; Z90.49 Acquired absence of other specified parts of digestive tract; Z88.8 Allergy status to other drugs, medicaments and biological substances; Z88.1 Allergy status to other antibiotic agents
CPT/HCPCS: 80048; 80053; 82550; 82553; 83735; 84484; 85025; 85610; 85730; 93306; 93458; 96372; 96374; 99285

== ENCOUNTER 2018-12-26 20:02 | Inpatient (IN) | payer BC ==
[2018-12-26] MEDS ORDERED: NITROGLYCERIN OINT 1 INCH/GM PACKET TOPICAL STA (20:33)
--- NOTE | 2018-12-26 20:40 | ED ---
General Adult HPI - General Chief complaint: Chest Pain Stated complaint: Chest Pain Time Seen by Provider: 12/26/18 20:14 Source: patient, family, EMS, RN notes reviewed, old records reviewed Mode of arrival: EMS Limitations: no limitations - History of Present Illness Initial comments: Chief complaint history of present illness this is a 48-year-old female presents emergency room with the complaint of chest pressure and some numbness down her left arm. Patient recently had a cardiac catheterization for an acute IA just approximately 4 days ago. Patient reports she had a vasospasm. No stent was placed. At that time the patient was having chest pain, nausea, diaphoresis and bilateral arm discomfort. Today she reports that she had mild pressure in her chest and mild tingling to her left arm, no nausea no vomiting. Patient reports the discomfort lasts for less than a minute and is gone. This occurred several times over the past 2 hours. Patient states she thinks it might be anxiety attacks. - Related Data Home Medications Medication Instructions Recorded Confirmed Ferrous Sulfate [Iron] 325 mg PO DAILY 08/02/18 12/26/18 Previous Rx's Medication Instructions Recorded Acetaminophen Tab [Tylenol] 650 mg PO Q6HR PRN tab 12/25/18 Aspirin 81 mg PO DAILY chew 12/25/18 Atorvastatin [Lipitor] 40 mg PO HS #30 tab 12/25/18 Metoprolol Tartrate [Lopressor] 25 mg PO BID #60 tab 12/25/18 Nicotine 14Mg/24Hr Patch [Habitrol] 1 patch TRANSDERM DAILY #30 patch 12/25/18 Ticagrelor [Brilinta] 90 mg PO BID #60 tab 12/25/18 Allergies Allergy/AdvReac Type Severity Reaction Status Date / Time ceftibuten [From Cedax] Allergy Unknown Verified 12/26/18 20:47 fluticasone propionate Allergy Unknown Verified 12/26/18 20:47 [From Advair Diskus] salmeterol xinafoate Allergy Unknown Verified 12/26/18 20:47 [From Advair Diskus] Review of Systems ROS Statement: Those systems with pertinent positive or pertinent negative responses have been documented in the HPI. Review of systems. Patient denies headache or visual acuity changes. Currently no chest pressure discomfort no numbness down her arm. She reports this comes and goes last a minute has gone for 5 to minutes at a time and several times over the past several hours. Patient's denying any GI/ problems no neuro deficits. All systems were otherwise reviewed. Past medical problems significant for having had diagnosis of an IA just 4 days ago. Cardiac cath was done. She was told that she had a vasospasm, no stents were placed. She was placed on a beta chely, medication to stop smoking and Brillinta which she has been taking. Prior to coming emergency room the patient took 4 crushed aspirin. Family history noncontributory. The patient stopped smoking 4 days ago. Denies alcohol use. ROS Other: All systems not noted in ROS Statement are negative. Past Medical History Past Medical History: Myocardial Infarction (IA), Skin Disorder Additional Past Medical History / Comment(s): ARTHRITIS, Exzema History of Any Multi-Drug Resistant Organisms: None Reported Past Surgical History: Cholecystectomy, Heart Catheterization, Tubal Ligation Additional Past Surgical History / Comment(s): 12/22/18 Came in as a stemi--no intervention required during heart cath Past Anesthesia/Blood Transfusion Reactions: No Reported Reaction Past Psychological History: No Psychological Hx Reported Smoking Status: Former smoker Past Alcohol Use History: None Reported Past Drug Use History: None Reported - Past Family History Mother History Unknown: Yes Brother(s) History Unknown: Yes Family Medical History: No Reported History General Exam - General Exam Comments Initial Comments: General: The patient is awake and alert, here because of recurrent chest pressure with left arm numbness. Currently discomfort free. Vital signs Eye: Pupils are equal, round and reactive to light, extra-ocular movements are intact ; there is normal conjunctiva bilaterally. No signs of icterus. Ears, nose, mouth and throat: There are moist mucous membranes and no oral lesions. Neck: The neck is supple, there is no tenderness, no anterior cervical lymphadenopathy. Cardiovascular: There is a regular rate and rhythm. No murmur, rub or gallop is appreciated. Respiratory: Lungs are clear to auscultation, respirations are non-labored, breath sounds are equal. No wheezes, stridor, rales, or rhonchi. Gastrointestinal: Soft, non-distended, non-tender abdomen without masses or organomegaly noted. There is no rebound or guarding present. No CVA tenderness. Bowel sounds are unremarkable. Mild nausea no vomiting Back: There is no tenderness to palpation in the midline. There is no obvious deformity. No rashes noted. Musculoskeletal: Normal ROM, no tenderness, There is no pedal edema. There is no calf tenderness or swelling. Sensation intact. Pulses equal bilaterally 2+. Neurological: CN II-XII intact, There are no obvious motor or sensory deficits. Coordination appears grossly intact. Speech is normal. Denies numbness tingling or dizziness. Skin: Skin is warm and dry and no rashes or lesions are noted. Psychiatric: Cooperative, Limitations: no limitations Course Vital Signs 12/26/18 21:02 Temperature 98.9 F Pulse Rate 68 Respiratory 18 Rate Blood Pressure 175/82 O2 Sat by Pulse 99 Oximetry EKG Findings - EKG Comments: EKG Findings:: EKG was done at 2014. Emergency room showing normal sinus rhythm with ST-T wave changes mild ischemic changes. Ventricular rate 70 OR interval 116 QRS 76 QTc 418 QTc is 451. This EKG was compared to one done 4 days ago and there are significantly less acute changes. These 2 EKGs were sent to the on-call marine biologist. (Dr. Marsh) dr diaz Medical Decision Making - Medical Decision Making Medical decision making; 48-year-old female presents emergency room today with a complaint of chest discomfort mild pressure with left arm numbness. On-again off-again the last 1 minute and then gone for 10 minutes. Denies sweats, mild nausea but no vomiting. No other radiation. The patient had an acute IA just 4 days ago. At that time her troponin started off at 2 went up to 24 within 6 hours and then over the next several hours came down to 14 and then 6 on discharge. Today's troponin 0.905. Patient had an EKG done which was slightly similar to the one performed 4 days ago but with less evidence of ischemia. This 2 EKGs were sent to on-call marine biologist Dr. Marsh who agrees that the second one looks more normal, and the patient will be started on heparin and admitted with cardiology consultation. The patient had no chest pain the entire time she was in emergency room. The patient reports that she did not get a stent when she had cardiac cath 4 days ago because it was described as a basal spasm. Patient was placed on medications for home use. White count 8.6 hemoglobin 12 hematocrit 36, INR 0.9. The patient's potassium is 3.6 with a BUN of 18 creatinine 0.78 the GFR 90. Glucose 134. Troponin 0.905. Chest x-ray was done and reviewed by me. No acute pathology appreciated. Awaiting radiologist's report, currently the system is down so no official interpretations available at this time. - Lab Data Result diagrams: 12/26/18 20:56 12/26/18 20:56 Lab Results 12/26/18 12/26/18 12/26/18 Range/Units 20:56 20:56 20:56 WBC 8.6 (3.8-10.6) k/uL RBC 4.25 (3.80-5.40) m/uL Hgb 12.3 (11.4-16.0) gm/dL Hct 36.3 (34.0-46.0) % MCV 85.4 (80.0-100.0) fL MCH 28.9 (25.0-35.0) pg MCHC 33.8 (31.0-37.0) g/dL RDW 13.4 (11.5-15.5) % Plt Count 224 (150-450) k/uL Neutrophils % 76 % Lymphocytes % 11 % Monocytes % 6 % Eosinophils % 6 % Basophils % 0 % Neutrophils # 6.5 (1.3-7.7) k/uL Lymphocytes # 0.9 L (1.0-4.8) k/uL Monocytes # 0.5 (0-1.0) k/uL Eosinophils # 0.5 (0-0.7) k/uL Basophils # 0.0 (0-0.2) k/uL PT (9.0-12.0) sec INR (<1.2) APTT (22.0-30.0) sec Sodium 139 (137-145) mmol/L Potassium 3.6 (3.5-5.1) mmol/L Chloride 110 H (98-107) mmol/L Carbon Dioxide 23 (22-30) mmol/L Anion Gap 6 mmol/L BUN 18 H (7-17) mg/dL Creatinine 0.78 (0.52-1.04) mg/dL Est GFR (CKD-EPI)AfAm >90 (>60 ml/min/1.73 sqM) Est GFR (CKD-EPI)NonAf 90 (>60 ml/min/1.73 sqM) Glucose 134 H (74-99) mg/dL Calcium 9.0 (8.4-10.2) mg/dL Total Bilirubin 0.6 (0.2-1.3) mg/dL AST 15 (14-36) U/L ALT 33 (9-52) U/L Alkaline Phosphatase 53 (38-126) U/L Creatine Kinase 76 (30-135) U/L CK-MB (CK-2) 0.9 (0.0-2.4) ng/mL Troponin I 0.905 H* (0.000-0.034) ng/mL Total Protein 6.2 L (6.3-8.2) g/dL Albumin 3.7 (3.5-5.0) g/dL 12/26/18 Range/Units 20:56 WBC (3.8-10.6) k/uL RBC (3.80-5.40) m/uL Hgb (11.4-16.0) gm/dL Hct (34.0-46.0) % MCV (80.0-100.0) fL MCH (25.0-35.0) pg MCHC (31.0-37.0) g/dL RDW (11.5-15.5) % Plt Count (150-450) k/uL Neutrophils % % Lymphocytes % % Monocytes % % Eosinophils % % Basophils % % Neutrophils # (1.3-7.7) k/uL Lymphocytes # (1.0-4.8) k/uL Monocytes # (0-1.0) k/uL Eosinophils # (0-0.7) k/uL Basophils # (0-0.2) k/uL PT 9.8 (9.0-12.0) sec INR 0.9 (<1.2) APTT 22.7 (22.0-30.0) sec Sodium (137-145) mmol/L Potassium (3.5-5.1) mmol/L Chloride (98-107) mmol/L Carbon Dioxide (22-30) mmol/L Anion Gap mmol/L BUN (7-17) mg/dL Creatinine (0.52-1.04) mg/dL Est GFR (CKD-EPI)AfAm (>60 ml/min/1.73 sqM) Est GFR (CKD-EPI)NonAf (>60 ml/min/1.73 sqM) Glucose (74-99) mg/dL Calcium (8.4-10.2) mg/dL Total Bilirubin (0.2-1.3) mg/dL AST (14-36) U/L ALT (9-52) U/L Alkaline Phosphatase (38-126) U/L Creatine Kinase (30-135) U/L CK-MB (CK-2) (0.0-2.4) ng/mL Troponin I (0.000-0.034) ng/mL Total Protein (6.3-8.2) g/dL Albumin (3.5-5.0) g/dL Disposition Clinical Impression: Unstable angina Disposition: ADMITTED IP TO THIS HOSP Condition: Fair Is patient prescribed a controlled substance at d/c from ED?: No Referrals: Alberto Merino MD [Primary Care Provider] - 1-2 days
[2018-12-26 21:08] LABS: Basophils % (A) 0 %; Eosinophils # (A) 0.5 k/uL (0-0.7); Eosinophils % (A) 6 %; HCT 36.3 % (34.0-46.0); HGB 12.3 gm/dL (11.4-16.0); Lymphocytes # (A) 0.9 k/uL (1.0-4.8); Lymphocytes % (A) 11 %; MCH 28.9 pg (25.0-35.0); MCHC 33.8 g/dL (31.0-37.0); MCV 85.4 fL (80.0-100.0); Mean Platelet Volume 6.6; Monocytes # (A) 0.5 k/uL (0-1.0); Monocytes % (A) 6 %; Neutrophils # (A) 6.5 k/uL (1.3-7.7); Neutrophils % (A) 76 %; Platelet Count 224 k/uL (150-450); RBC 4.25 m/uL (3.80-5.40); RDW 13.4 % (11.5-15.5); WBC 8.6 k/uL (3.8-10.6)
[2018-12-26 21:25] LABS: ALT 33 U/L (9-52); AST 15 U/L (14-36); Albumin 3.7 g/dL (3.5-5.0); Alkaline Phosphatase 53 U/L (38-126); Anion Gap 6 mmol/L; Blood Urea Nitrogen 18 mg/dL (7-17); Carbon Dioxide 23 mmol/L (22-30); Chloride 110 mmol/L (98-107); Creatine Kinase 76 U/L (30-135); Glucose 134 mg/dL (74-99); Potassium 3.6 mmol/L (3.5-5.1); Sodium 139 mmol/L (137-145); Total Bilirubin 0.6 mg/dL (0.2-1.3); Total Protein 6.2 g/dL (6.3-8.2)
[2018-12-26 21:32] LABS: INR 0.9 (<1.2); Partial Thromboplastin Time 22.7 sec (22.0-30.0); Prothrombin Time 9.8 sec (9.0-12.0)
[2018-12-26 21:41] LABS: Creatine Kinase MB 0.9 ng/mL (0.0-2.4)
[2018-12-26 21:47] LABS: Troponin I 0.905 ng/mL (0.000-0.034)
[2018-12-26] MEDS ORDERED: HEPARIN SODIUM,PORCINE 5,000 UNIT/ML 1 ML VIAL IV ONE (22:14)
[2018-12-26] MEDS ORDERED: HEPARIN SODIUM,PORCINE 5,000 UNIT/ML 1 ML VIAL IV PRN (22:14)
[2018-12-26] MEDS ORDERED: HEPARIN SOD,PORK IN 0.45% NACL 25,000 UNIT in 0.45% NACL 1 250ML.BAG IV SCH (22:15)
[2018-12-26] MEDS ORDERED: NALOXONE 0.4 MG/ML 1 ML VIAL IV PRN (22:23)
--- NOTE | 2018-12-26 22:35 | XR ---
EXAM: XR Chest, 1 View CLINICAL HISTORY: ITS.REASON XR Reason: chest pain TECHNIQUE: Frontal view of the chest. COMPARISON: Chest radiograph on 11/06/2015 FINDINGS: Hardware: None. Lungs/pleura: Mild elevation of the left hemidiaphragm. No focal consolidation. No pleural effusion or pneumothorax. Heart/mediastinum: Normal. No cardiomegaly. Soft tissues: Unremarkable. Bones: No acute fracture. Upper abdomen: Cholecystectomy clips in the right upper quadrant. IMPRESSION: No acute disease identified.
[2018-12-26] MEDS: SODIUM CHLORIDE 0.9% 1,000 ML IV SCH (23:24)
[2018-12-27] MEDS: ACETAMINOPHEN TAB 325 MG TAB PO PRN ×2 (01:33→21:44)
[2018-12-27 01:57] VITALS: BMI 27.3
[2018-12-27 06:42] LABS: Basophils % (A) 0 %; Eosinophils # (A) 0.5 k/uL (0-0.7); Eosinophils % (A) 6 %; HCT 34.3 % (34.0-46.0); Lymphocytes # (A) 1.6 k/uL (1.0-4.8); Lymphocytes % (A) 19 %; MCH 27.8 pg (25.0-35.0); MCHC 32.2 g/dL (31.0-37.0); MCV 86.5 fL (80.0-100.0); Mean Platelet Volume 6.8; Monocytes # (A) 0.4 k/uL (0-1.0); Monocytes % (A) 5 %; Neutrophils # (A) 5.7 k/uL (1.3-7.7); Neutrophils % (A) 68 %; Platelet Count 202 k/uL (150-450); RBC 3.97 m/uL (3.80-5.40); RDW 13.4 % (11.5-15.5); WBC 8.3 k/uL (3.8-10.6)
--- NOTE | 2018-12-27 08:04 | P.HPIM ---
History of Present Illness H&P Date: 12/27/18 Chief Complaint: Chest pain This history and physical on a 48-year-old white female who is essentially discharged several days ago for myocardial infarction suspected from vasospasm. Cardiac catheterization did not require any type of stent. She is now returning because of new onset chest pain. She's been on appropriate postop [facility] treatment and has been compliant with medication. Question element of anxiety however, troponin did increase again during the stay. Cardiology is not consulted. Review of Systems Constitutional: Denies chills, Denies fever Eyes: denies blurred vision, denies pain Cardiovascular: Reports chest pain, Reports shortness of breath Respiratory: Denies cough Genitourinary: Denies dysuria, Denies hematuria Musculoskeletal: Denies myalgias Integumentary: Denies pruritus, Denies rash Past Medical History Past Medical History: Myocardial Infarction ([place]), Skin Disorder Additional Past Medical History / Comment(s): ARTHRITIS, Exzema Last Myocardial Infarction Date:: 12/22/18 History of Any Multi-Drug Resistant Organisms: None Reported Past Surgical History: Cholecystectomy, Heart Catheterization, Tubal Ligation Additional Past Surgical History / Comment(s): 12/22/18 Came in as a stemi--no intervention required during heart cath Past Anesthesia/Blood Transfusion Reactions: No Reported Reaction Past Psychological History: No Psychological Hx Reported Smoking Status: Former smoker Past Alcohol Use History: None Reported Past Drug Use History: None Reported - Past Family History Mother History Unknown: Yes Family Medical History: No Reported History Brother(s) History Unknown: Yes Family Medical History: No Reported History Medications and Allergies Home Medications Medication Instructions Recorded Confirmed Type Ferrous Sulfate [Iron] 325 mg PO DAILY 08/02/18 12/26/18 History Acetaminophen Tab [Tylenol] 650 mg PO Q6HR PRN tab 12/25/18 12/26/18 Rx Aspirin 81 mg PO DAILY chew 12/25/18 12/26/18 Rx Atorvastatin [Lipitor] 40 mg PO HS #30 tab 12/25/18 12/26/18 Rx Metoprolol Tartrate [Lopressor] 25 mg PO BID #60 tab 12/25/18 12/26/18 Rx Nicotine 14Mg/24Hr Patch [Habitrol] 1 patch TRANSDERM DAILY #30 patch 12/25/18 12/26/18 Rx Ticagrelor [Brilinta] 90 mg PO BID #60 tab 12/25/18 12/26/18 Rx Allergies Allergy/AdvReac Type Severity Reaction Status Date / Time ceftibuten [From Cedax] Allergy Unknown Verified 12/26/18 20:47 fluticasone propionate Allergy Unknown Verified 12/26/18 20:47 [From Advair Diskus] salmeterol xinafoate Allergy Unknown Verified 12/26/18 20:47 [From Advair Diskus] Physical Exam Vitals: Vital Signs Temp Pulse Pulse Resp BP BP Pulse Ox 12/27/18 07:58 98.5 F 78 16 139/85 96 12/27/18 04:00 97.8 F 79 18 139/78 97 12/27/18 03:59 16 12/27/18 01:44 98.1 F 70 18 138/81 99 12/27/18 01:30 68 17 117/95 99 12/27/18 01:00 66 18 129/79 94 L 12/27/18 00:30 61 17 139/89 96 12/27/18 00:00 70 19 143/82 93 L 12/26/18 23:30 73 16 140/88 95 12/26/18 23:00 71 18 142/88 98 12/26/18 22:30 73 21 150/84 98 12/26/18 22:00 68 15 148/81 98 12/26/18 21:30 63 18 175/82 98 12/26/18 21:02 98.9 F 70 18 175/82 99 Intake and Output 12/26/18 12/27/18 12/27/18 22:59 06:59 14:59 Output Total 400 Balance -400 Output: Urine 400 Other: Weight 70.307 kg 74.8 kg - Constitutional General appearance: no acute distress - EENT Eyes: EOMI - Neck Neck: no lymphadenopathy - Respiratory Respiratory: bilateral: diminished - Cardiovascular Rhythm: regular Heart sounds: normal: S1, S2 Abnormal Heart Sounds: no S3 Gallop - Gastrointestinal General gastrointestinal: soft, no tenderness - Musculoskeletal Musculoskeletal: generalized weakness - Psychiatric Psychiatric: A&O x's 3, no intact judgment & insight Results CBC & Chem 7: 12/27/18 06:23 12/26/18 20:56 Labs: Abnormal Lab Results - Last 24 Hours (Table) 12/26/18 12/26/18 12/26/18 Range/Units 20:56 20:56 20:56 Hgb (11.4-16.0) gm/dL Lymphocytes # 0.9 L (1.0-4.8) k/uL APTT (22.0-30.0) sec Chloride 110 H (98-107) mmol/L BUN 18 H (7-17) mg/dL Glucose 134 H (74-99) mg/dL Troponin I 0.905 H* (0.000-0.034) ng/mL Total Protein 6.2 L (6.3-8.2) g/dL 12/27/18 12/27/18 12/27/18 Range/Units 00:00 06:23 06:23 Hgb 11.0 L (11.4-16.0) gm/dL Lymphocytes # (1.0-4.8) k/uL APTT 34.6 H (22.0-30.0) sec Chloride (98-107) mmol/L BUN (7-17) mg/dL Glucose (74-99) mg/dL Troponin I 9.900 H* (0.000-0.034) ng/mL Total Protein (6.3-8.2) g/dL 12/27/18 Range/Units 06:23 Hgb (11.4-16.0) gm/dL Lymphocytes # (1.0-4.8) k/uL APTT (22.0-30.0) sec Chloride (98-107) mmol/L BUN (7-17) mg/dL Glucose (74-99) mg/dL Troponin I 8.900 H* (0.000-0.034) ng/mL Total Protein (6.3-8.2) g/dL Thrombosis Risk Factor Assmnt - Choose All That Apply Any of the Below Risk Factors Present?: Yes Each Factor Represents 1 point: Acute [facility] Thrombosis Risk Factor Assessment Total Risk Factor Score: 1 Thrombosis Risk Factor Assessment Level: Low Risk Assessment and Plan (1) Unstable angina Current Visit: Yes Status: Acute Code(s): I20.0 - UNSTABLE ANGINA SNOMED Code(s): 7796944 (2) ST elevation myocardial infarction (STEMI) Current Visit: No Status: Acute Code(s): I21.3 - ST ELEVATION (STEMI) MYOCARDIAL INFARCTION OF [facility] SITE SNOMED Code(s): 878138271 (3) Tobacco abuse Current Visit: No Status: Acute Code(s): Z72.0 - TOBACCO USE SNOMED Code(s ): 007179833 Plan: Reconcile medications. Await cardiology input. Probable echocardiogram to be repeated. See orders otherwise. Again, tobacco cessation was discussed the patient Time with Patient: Greater than 30
[2018-12-27] MEDS: FAMOTIDINE 20 MG TAB PO SCH ×2 (08:08→20:53)
[2018-12-27] MEDS: ASPIRIN 81 MG PO SCH (08:08)
[2018-12-27] MEDS: FERROUS SULFATE 325 MG TAB PO SCH (08:08)
[2018-12-27] MEDS ORDERED: METOPROLOL TARTRATE 25 MG TAB PO SCH (09:00)
[2018-12-27] MEDS ORDERED: NITROGLYCERIN SL TABS 0.4 MG TAB SUBLINGUAL PRN (09:05)
[2018-12-27] MEDS ORDERED: ATORVASTATIN 80 MG TAB PO STA (09:05)
[2018-12-27] MEDS ORDERED: ALPRAZolam 0.5 MG TAB PO PRN (09:05)
[2018-12-27] MEDS ORDERED: ALPRAZolam 0.25 MG TAB PO PRN (09:05)
[2018-12-27] MEDS ORDERED: SODIUM CHLORIDE 0.9% 1,000 ML in EMPTY BAG 1 BAG IV ONE (09:05)
[2018-12-27] MEDS ORDERED: ASPIRIN 325 MG TAB PO STA (09:05)
[2018-12-27] MEDS ORDERED: TICAGRELOR 90 MG TAB PO SCH (09:15)
--- NOTE | 2018-12-27 09:42 | CONS ---
CONSULTATION Mrs. Mijares is a 48-year-old female who is seen for cardiac evaluation. This patient is known to us since her previous admission. The patient was admitted last time with inferior wall myocardial infarction. Cardiac catheterization revealed a long area of smooth narrowing in the PLV branch. The patient had a YENY-3 flow and EKG was normalized and patient was pain free. A possibility of spontaneous dissection was considered at that time, and patient was treated medically. Patient was doing well. She was ambulated and without any chest pain. The patient went home and according to her, she thought that she was having anxiety attack and she had some chest pain, nausea, and bilateral throat discomfort. She had a mild tingling and mild pressure in the chest and the tingling in her left arm. EKG did show some ST depression in V1 and V2 and minimal J-point elevation. Patient's cardiac enzymes are positive suggestive for non ST-segment myocardial infarction. HOME MEDICATIONS: Patient's home medications include Brilinta 90 mg b.i.d., Habitrol, Lopressor, Lipitor. REVIEW OF THE SYSTEM: Review of the systems is otherwise unremarkable. PAST MEDICAL HISTORY: Past medical history includes a history of cholecystectomy, tubal ligation, and recent myocardial infarction. PHYSICAL EXAMINATION: Physical examination at present reveals a 48-year-old female who does not appear to be in any acute distress. Patient's blood pressure initially was 175/82 mmHg in the emergency room. Blood pressure now is 139/85 mmHg. Patient is afebrile. Heart rate is 78 per minute. Head/ENT examination is negative. Neck is supple. There is no increase in jugular venous pressure. Both the carotid pulses are felt. There is no bruit. Chest is symmetrical. HEART: The PMI is not felt. First and second heart sounds are normal. There is no evidence of any murmur. Lungs are clinically clear to auscultation and percussion. Abdomen is soft. EXTREMITIES: Peripheral pulses are 2+. The patient's laboratory tests shows hemoglobin is 11.0. Initial troponin was 0.905, subsequent troponin is 9.9. FINAL IMPRESSION: This patient has come back with a recurrent chest pain suggestive of recurrent non- ST- segment elevation myocardial infarction. The patient is advised a repeat cardiac catheterization and possible stenting. The procedure and risks were fully explained to the patient. MMODL / IJN: [id number] /
[2018-12-27] MEDS: NICOTINE 14MG/24HR PATCH TRANSDERM SCH (10:27)
[2018-12-27] MEDS: SODIUM CHLORIDE 0.9% 1,000 ML IV SCH (10:30)
[2018-12-27] MEDS ORDERED: LIDOCAINE 1% INJ 10MG/ML (20 ML MDV) ONE (11:06)
[2018-12-27] MEDS ORDERED: fentaNYL (PF) 50 MCG/ML 2 ML AMP ONE (11:06)
[2018-12-27] MEDS ORDERED: IV FLUID CONTINUATION 1,000 ML IV ONE (11:10)
[2018-12-27] MEDS ORDERED: fentaNYL (PF) 50 MCG/ML 2 ML AMP IV ONE (11:29)
[2018-12-27] MEDS ORDERED: MIDAZOLAM 2 MG/2 ML VIAL IV ONE (11:29)
[2018-12-27] MEDS ORDERED: LIDOCAINE 1% INJ 10MG/ML (20 ML MDV) SQ ONE (11:33)
[2018-12-27] MEDS ORDERED: NITROGLYCERIN 1000MCG/10ML SYRINGE INTRACORON ONE (11:46)
[2018-12-27] MEDS ORDERED: niCARdipine Syringe (1,000 mcg/10 mL) INTRACORON ONE (11:54)
[2018-12-27] MEDS ORDERED: IOPAMIDOL-370 150ML BTL INJ ONE (11:59)
[2018-12-27] MEDS ORDERED: RX INFO: IV CONTRAST WAS GIVEN 1 EACH MISC MISCELLANE PRN (12:24)
--- NOTE | 2018-12-27 12:36 | CC ---
CARDIAC CATHETERIZATION REPORT This patient came the second time with complaint of chest discomfort and with EKG changes as well as elevated troponin suggestive of non-Q-wave myocardial infarction. The patient recently was in the hospital at that time patient had a diffuse long area of narrowing in the PLV branch, which was thought to be either a spontaneous dissection or a spasm and patient was treated medically and sent home. In view of the recurrent chest pain with elevated troponin, patient was advised cardiac catheterization for definitive diagnosis. PROCEDURE: The left groin was prepped and draped in the usual manner and the left femoral artery was entered under the ultrasound guidance and micropuncture needle. Subsequently, selective coronary angiography was performed in multiple projections. The left main coronary artery is normally patent. LAD is normal. Circumflex coronary artery is normal. The right coronary artery showed about 70% smooth narrowing in the midportion of the right coronary artery which was a new finding as compared to the last angiogram. There was some mild diffuse narrowing in the PLV branch. The patient subsequently received about 300 mcg of intracoronary nitroglycerin and nicardipine and then the coronary angiography was repeated and the lesion in the mid RCA resolved completely suggestive of spasm. The long lesion in the PLV branch also improved significantly. There was a mild narrowing in the midportion of the PLV branch which is a small caliber blood vessel. FINAL IMPRESSION: This patient's coronary anatomy findings are suggestive of a spontaneous spasm. There is no evidence of underlying significant obstructive coronary artery disease or plaque. The patient will be treated with high dose of nitrates and calcium channel chely and Lipitor, aspirin and Plavix. MMODL / IJN: [id number] /
[2018-12-27] MEDS: CLOPIDOGREL 75 MG TAB PO SCH (12:55)
[2018-12-27] MEDS ORDERED: HYDROmorphone 0.5 MG/0.5 ML SYRINGE IVP STA (13:36)
[2018-12-27] MEDS: ATORVASTATIN 40 MG TAB PO SCH (20:52)
[2018-12-27] MEDS: ISOSORBIDE MONONITRATE ER 60 MG TAB.ER.24H PO SCH (20:53)
[2018-12-28] MEDS: SODIUM CHLORIDE 0.9% 1,000 ML IV SCH ×3 (01:14→23:32)
[2018-12-28] MEDS: ONDANSETRON 4 MG/2 ML VIAL IVP PRN ×2 (06:18→12:19)
[2018-12-28] MEDS: ACETAMINOPHEN TAB 325 MG TAB PO PRN ×2 (07:04→12:18)
[2018-12-28 07:45] LABS: Basophils % (A) 0 %; Eosinophils # (A) 0.2 k/uL (0-0.7); Eosinophils % (A) 3 %; HCT 35.1 % (34.0-46.0); HGB 11.8 gm/dL (11.4-16.0); Lymphocytes # (A) 0.8 k/uL (1.0-4.8); Lymphocytes % (A) 10 %; MCH 28.8 pg (25.0-35.0); MCHC 33.7 g/dL (31.0-37.0); MCV 85.5 fL (80.0-100.0); Mean Platelet Volume 6.9; Monocytes # (A) 0.4 k/uL (0-1.0); Monocytes % (A) 5 %; Neutrophils # (A) 6.7 k/uL (1.3-7.7); Neutrophils % (A) 81 %; Platelet Count 205 k/uL (150-450); RDW 13.5 % (11.5-15.5); WBC 8.3 k/uL (3.8-10.6)
--- NOTE | 2018-12-28 08:24 | P.DS ---
Providers Date of admission: 12/26/18 22:23 Attending physician: Alberto Merino Consults: 12/26/18 22:23 Consult Physician Stat Consulting Provider: Foster Marsh Consult Reason/Comments: Chest pain, unstable angina, recent [place] Do you want consulting provider notified?: Already Contacted Primary care physician: Alberto Merino - Discharge Diagnosis(es) (1) Unstable angina Current Visit: Yes Status: Acute (2) ST elevation myocardial infarction (STEMI) Current Visit: No Status: Acute (3) Tobacco abuse Current Visit: No Status: Acute Hospital Course: This discharge summary 48-year-old white female essentially admitted for coronary vasospasm. The patient ended up having another cardiac catheterization which did not show any new pathology. The patient will be discharged once cleared by cardiology to follow-up with me in 3 days. Patient Condition at Discharge: Fair Plan - Discharge Summary Discharge Rx Participant: Yes New Discharge Prescriptions: New Clopidogrel [Plavix] 75 mg PO DAILY #30 tab Continue Ferrous Sulfate [Iron] 325 mg PO DAILY Acetaminophen Tab [Tylenol] 650 mg PO Q6HR PRN tab PRN Reason: Fever and/ or Mild Pain Aspirin 81 mg PO DAILY chew Atorvastatin [Lipitor] 40 mg PO HS #30 tab Metoprolol Tartrate [Lopressor] 25 mg PO BID #60 tab Nicotine 14Mg/24Hr Patch [Habitrol] 1 patch TRANSDERM DAILY #30 patch Ticagrelor [Brilinta] 90 mg PO BID #60 tab Discharge Medication List Ferrous Sulfate [Iron] 325 mg PO DAILY 08/02/18 [History] Acetaminophen Tab [Tylenol] 650 mg PO Q6HR PRN tab 12/25/18 [Rx] Aspirin 81 mg PO DAILY chew 12/25/18 [Rx] Atorvastatin [Lipitor] 40 mg PO HS #30 tab 12/25/18 [Rx] Metoprolol Tartrate [Lopressor] 25 mg PO BID #60 tab 12/25/18 [Rx] Nicotine 14Mg/24Hr Patch [Habitrol] 1 patch TRANSDERM DAILY #30 patch 12/25/18 [ Rx] Ticagrelor [Brilinta] 90 mg PO BID #60 tab 12/25/18 [Rx] Clopidogrel [Plavix] 75 mg PO DAILY #30 tab 12/28/18 [Rx] Follow up Appointment(s)/Referral(s): Alberto Merino MD [Primary Care Provider] - 1-2 days Discharge Disposition: HOME SELF-CARE
[2018-12-28] MEDS: FAMOTIDINE 20 MG TAB PO SCH ×2 (09:08→22:24)
[2018-12-28] MEDS: CLOPIDOGREL 75 MG TAB PO SCH (09:08)
[2018-12-28] MEDS: ISOSORBIDE MONONITRATE ER 60 MG TAB.ER.24H PO SCH ×3 (09:08→22:24)
[2018-12-28] MEDS: FERROUS SULFATE 325 MG TAB PO SCH (09:08)
[2018-12-28] MEDS: NICOTINE 14MG/24HR PATCH TRANSDERM SCH (09:09)
[2018-12-28] MEDS: ASPIRIN 81 MG PO SCH (12:24)
--- NOTE | 2018-12-28 14:53 | P.PN ---
Subjective Progress Note Date: 12/28/18 This is a pleasant 48-year-old female who was recently in the hospital for myocardial infarction with suspected vasospasm, cardiac catheterization did not require any type of stent. She really presented to the hospital with another onset of chest pain, therefore she was taken back to the cardiac catheterization lab yesterday where the patient was found to have significant coronary spasm. She was started yesterday on Imdur 120 twice a day along with Procardia. Patient was seen and examined this morning, denied any chest discomfort, complaining of moderate to severe headache. Hemodynamically she is stable. Objective - Vital Signs Vital signs: Vital Signs Temp 98.2 F 12/28/18 12:00 Pulse 89 12/28/18 12:00 Resp 14 12/28/18 12:00 BP 128/79 12/28/18 12:00 Pulse Ox 92 L 12/28/18 12:00 Intake & Output 12/27/18 12/28/18 12/28/18 18:59 06:59 18:59 Intake Total 585.042 110 0250 Output Total 400 Balance 185.163 153 5269 Weight 73.7 kg Intake: IV 50 Intake, IV Titration 73.903 300 Amount Heparin Sod,Pork in 0.45% 73.903 NaCl 25,000 unit In 0.45 % NaCl 1 250ml.bag @ 12 UNITS/KG/HR 8.43 mls/hr IV .Q24H [facility] Rx#: [id number] IV Fluid Continuation 1, 300 000 ml @ 0 mls/hr IV .STK -MED ONE Rx#:[id number] Oral [phone] Output: Urine 400 Other: Voiding Method Toilet Toilet # Voids 1 1 1 - Exam PHYSICAL EXAMINATION: GENERAL: 48-year-old female in no acute distress at the time of my examination HEENT: Head is atraumatic, normocephalic. Pupils equal, round. Sclera anicteric. Conjunctiva are clear. Mucous membranes of the mouth are moist. Neck is supple. There is no elevated jugular venous pressure. No carotid bruit is heard. HEART EXAMINATION: Heart S1, S2 normal. No murmur or gallop heard. CHEST EXAMINATION: Lungs are clear to auscultation and precussion. No chest wall tenderness is noted on palpation or with deep breathing. ABDOMEN: Soft, nontender. Bowel sounds are heard. No organomegaly noted. EXTREMITIES: 2+ peripheral pulses with no evidence of peripheral edema and no calf tenderness noted. Right and left groins are soft, no evidence of any hematoma. NEUROLOGIC patient is awake, alert and oriented ?-3. . - Labs CBC & Chem 7: 12/28/18 06:53 12/26/18 20:56 Labs: Abnormal Lab Results - Last 24 Hours (Table) 12/28/18 Range/Units 06:53 Lymphocytes # 0.8 L (1.0-4.8) k/uL Assessment and Plan Plan: Assessment and plan #1 chest pain, status post cardiac catheterization which revealed significant coronary spasm. Hospitalization with a non-Q-wave AL secondary to spasm. #2 nicotine dependence #3 hyperlipidemia Plan We will decrease the Imdur to 60 mg one tablet by mouth twice a day, continue with the Procardia. Patient again has been advised regarding the importance of nicotine cessation. We would like to observe the patient for another 24 hours. DNP note has been reviewed, I agree with a documented findings and plan of care. Patient was seen and examined.
[2018-12-28] MEDS: BUTA/APAP/CAF/COD 50-325-40-30 CAP PO PRN ×2 (16:03→22:24)
[2018-12-28] MEDS: ATORVASTATIN 40 MG TAB PO SCH (22:24)
[2018-12-28 23:29] VITALS: RESP 16
[2018-12-29 06:58] LABS: Basophils % (A) 0 %; Eosinophils # (A) 0.4 k/uL (0-0.7); Eosinophils % (A) 5 %; HCT 33.8 % (34.0-46.0); HGB 11.8 gm/dL (11.4-16.0); Lymphocytes # (A) 1.1 k/uL (1.0-4.8); Lymphocytes % (A) 14 %; MCH 29.7 pg (25.0-35.0); MCHC 34.8 g/dL (31.0-37.0); MCV 85.4 fL (80.0-100.0); Mean Platelet Volume 6.3; Monocytes # (A) 0.5 k/uL (0-1.0); Monocytes % (A) 7 %; Neutrophils # (A) 5.8 k/uL (1.3-7.7); Neutrophils % (A) 74 %; Platelet Count 200 k/uL (150-450); RBC 3.95 m/uL (3.80-5.40); RDW 13.5 % (11.5-15.5); WBC 7.8 k/uL (3.8-10.6)
[2018-12-29] MEDS: BUTA/APAP/CAF/COD 50-325-40-30 CAP PO PRN (09:34)
[2018-12-29] MEDS: ASPIRIN 81 MG PO SCH (09:35)
[2018-12-29] MEDS: FERROUS SULFATE 325 MG TAB PO SCH (09:35)
[2018-12-29] MEDS: CLOPIDOGREL 75 MG TAB PO SCH (09:35)
[2018-12-29] MEDS: NICOTINE 14MG/24HR PATCH TRANSDERM SCH (09:35)
[2018-12-29] MEDS: FAMOTIDINE 20 MG TAB PO SCH (09:35)
[2018-12-29] MEDS: ISOSORBIDE MONONITRATE ER 60 MG TAB.ER.24H PO SCH (09:35)
[2018-12-29] MEDS: SODIUM CHLORIDE 0.9% 1,000 ML IV SCH (11:51)
[2018-12-29 13:15] VITALS: BP 117/72; PULSE 86; TEMP 98.4
--- NOTE | 2018-12-29 14:04 | P.PN ---
Subjective Progress Note Date: 12/29/18 This is a pleasant 48-year-old female who was recently in the hospital for myocardial infarction with suspected vasospasm, cardiac catheterization did not require any type of stent. She really presented to the hospital with another onset of chest pain, therefore she was taken back to the cardiac catheterization lab yesterday where the patient was found to have significant coronary spasm. She was started yesterday on Imdur 120 twice a day along with Procardia. Patient was seen and examined this morning, denied any chest discomfort, complaining of moderate to severe headache. Hemodynamically she is stable. 12/29/2018 Patient seen and examined this morning, no further headache today. Overall doing well. From our perspective she may be able to be discharged home today on Imdur 60 mg one tablet by mouth twice a day, aspirin 81 mg daily, Plavix 75 mg daily, Lipitor 40 mg daily, Procardia XL 60 mg daily and sublingual nitroglycerin as needed for chest pain. Objective - Vital Signs Vital signs: Vital Signs Temp 98.4 F 12/29/18 12:00 Pulse 86 12/29/18 12:00 Resp 16 12/29/18 12:00 BP 117/72 12/29/18 12:00 Pulse Ox 96 12/29/18 12:00 Intake & Output 12/28/18 12/29/18 12/29/18 18:59 06:59 18:59 Intake Total 1600 300 222 Output Total 1200 Balance 1600 300 -978 Weight 73.8 kg Intake: Oral 1600 300 222 Output: Urine 1200 Other: Voiding Method Toilet Toilet # Voids 2 1 - Exam PHYSICAL EXAMINATION: GENERAL: 48-year-old female in no acute distress at the time of my examination HEENT: Head is atraumatic, normocephalic. Pupils equal, round. Sclera anicteric. Conjunctiva are clear. Mucous membranes of the mouth are moist. Neck is supple. There is no elevated jugular venous pressure. No carotid bruit is heard. HEART EXAMINATION: Heart S1, S2 normal. No murmur or gallop heard. CHEST EXAMINATION: Lungs are clear to auscultation and precussion. No chest wall tenderness is noted on palpation or with deep breathing. ABDOMEN: Soft, nontender. Bowel sounds are heard. No organomegaly noted. EXTREMITIES: 2+ peripheral pulses with no evidence of peripheral edema and no calf tenderness noted. Right and left groins are soft, no evidence of any hematoma. NEUROLOGIC patient is awake, alert and oriented ?-3. . - Labs CBC & Chem 7: 12/29/18 06:23 12/26/18 20:56 Labs: Abnormal Lab Results - Last 24 Hours (Table) 12/29/18 Range/Units 06:23 Hct 33.8 L (34.0-46.0) % Assessment and Plan Plan: Assessment and plan #1 chest pain, status post cardiac catheterization which revealed significant coronary spasm. Hospitalization with a non-Q-wave [place] secondary to spasm. #2 nicotine dependence #3 hyperlipidemia Plan Cardiology's perspective, patient may be able to be discharged home today on current dose of Procardia and Imdur along with baby aspirin, Lipitor 40, Plavix 75 mg daily, nicotine patch and sublingual nitroglycerin as needed for pain. DNP note has been reviewed, I agree with a documented findings and plan of care. Patient was seen and examined.
== END 2018-12-29 14:02 | disposition home or self-care (01) | DRG 282 ==
LOC: EC 20:02 → 3SCARD 22:23
PROVIDERS: ADMIT Family Medicine; ATTEND Family Medicine
PROC: B2111ZZ Fluoroscopy of Multiple Coronary Arteries using Low Osmolar Contrast (ICD-10-PCS; principal; 2018-12-27 11:10)
DX: I20.1 Angina pectoris with documented spasm (principal); I21.19 ST elevation (STEMI) myocardial infarction involving other coronary artery of inferior wall; E78.5 Hyperlipidemia, unspecified; M19.90 Unspecified osteoarthritis, unspecified site; L30.9 Dermatitis, unspecified; F17.210 Nicotine dependence, cigarettes, uncomplicated; Z71.6 Tobacco abuse counseling; Z79.82 Long term (current) use of aspirin; Z79.02 Long term (current) use of antithrombotics/antiplatelets; Z79.899 Other long term (current) drug therapy; Z90.49 Acquired absence of other specified parts of digestive tract; Z98.51 Tubal ligation status; Z88.1 Allergy status to other antibiotic agents; Z88.8 Allergy status to other drugs, medicaments and biological substances
CPT/HCPCS: 36415; 71045; 76937; 80053; 82550; 82553; 84484; 85025; 85610; 85730; 93005; 93454; 96365; 96366; 96376; 99285

== ENCOUNTER → 2020-09-01 | Outpatient (CLI) | payer BC | END | disposition home or self-care (01) | LOC: LABWHC1 15:39 | PROVIDERS: ATTEND Family Medicine | DX: Z20.828 Contact with and (suspected) exposure to other viral communicable diseases (principal) | CPT/HCPCS: U0003; C9803 ==

== ENCOUNTER 2020-10-11 10:40 | Inpatient (IN) | payer BC ==
[2020-10-11] MEDS ORDERED: SODIUM CHLORIDE 0.9% 1,000 ML IV STA (10:59)
[2020-10-11] MEDS ORDERED: MORPHINE SULFATE 4 MG/ML SYRINGE IV STA (10:59)
[2020-10-11] MEDS ORDERED: ONDANSETRON 4 MG/2 ML VIAL IVP STA (10:59)
[2020-10-11] MEDS ORDERED: HYDROmorphone 1 MG/ML 1 ML SYRINGE IVP STA (11:01)
[2020-10-11 11:35] LABS: ALT 18 U/L (4-34); AST 19 U/L (14-36); African American GFR (CKD) >90 (>60 ml/min/1.73 sqM); Albumin 3.8 g/dL (3.5-5.0); Alkaline Phosphatase 63 U/L (38-126); Amylase 36 U/L (30-110); Anion Gap 8 mmol/L; Blood Urea Nitrogen 11 mg/dL (7-17); Calcium 8.9 mg/dL (8.4-10.2); Carbon Dioxide 22 mmol/L (22-30); Chloride 107 mmol/L (98-107); Glucose 141 mg/dL (74-99); Lipase 84 U/L (23-300); Non-African American GFR(CKD) >90 (>60 ml/min/1.73 sqM); Potassium 3.7 mmol/L (3.5-5.1); Sodium 137 mmol/L (137-145); Total Bilirubin 0.7 mg/dL (0.2-1.3); Total Protein 6.4 g/dL (6.3-8.2)
[2020-10-11 11:49] LABS: Anisocytosis Slight; HCT 21.8 % (34.0-46.0); Hypochromasia Marked; MCH 18.6 pg (25.0-35.0); MCHC 28.9 g/dL (31.0-37.0); MCV 64.4 fL (80.0-100.0); Mean Platelet Volume 6.7; Microcytosis Marked; Platelet Count 317 k/uL (150-450); Poikilocytosis Slight; RBC 3.38 m/uL (3.80-5.40); RDW 18.2 % (11.5-15.5); WBC 4.9 k/uL (3.8-10.6)
[2020-10-11 12:03] LABS: HGB 6.3 gm/dL (11.4-16.0)
--- NOTE | 2020-10-11 12:06 | CT ---
EXAMINATION TYPE: CT abdomen pelvis w con DATE OF EXAM: 10/11/2020 COMPARISON: None INDICATION: Left sided pain with nausea. DLP: 1190.5 mGycm, Automated exposure control for dose reduction was used. CONTRAST: 100 mL of Isovue 300. Study performed without Oral Contrast TECHNIQUE: Axial images were obtained from above the diaphragm to the pubic rami in the axial plane a t 5 mm thick sections. Reconstructed images are reviewed on the computer in the coronal plane. FINDINGS: Limited CT sections are obtained the lung bases. The lung bases are clear. CT ABDOMEN: Liver: Normal Spleen: Small cyst is within the anterior spleen Pancreas: Normal Adrenal glands: The adrenal glands are normal. Gallbladder: Surgically absent Kidneys: No masses are evident. No hydronephrosis is present. No cysts are present. Delayed images were obtained through the kidneys, which remain unremarkable. Aorta: Normal Inferior vena cava: Normal. CT PELVIS: There may be some minimal wall thickening of the ascending colon. Correlate for colitis. Transverse c olon appears normal. Descending colon is unremarkable. Study is performed without oral contrast causi ng some limitation of bowel evaluation. Appendix: Not identified. No inflammatory changes or dilated tubular structures are evident. Urinary bladder: Normal. Genitourinary structures: Uterus is normal. Adnexal regions are normal. Osseous structures: No suspicious lytic or sclerotic lesions. IMPRESSIONS: 1. Clinical consideration for mild ascending colon colitis. 2. No left side abnormality to account for pain.
--- NOTE | 2020-10-11 12:07 | ED ---
Abdominal Pain HPI - General Chief Complaint: Abdominal Pain Stated Complaint: Abd Pain Time Seen by Provider: 10/11/20 10:54 Source: patient, family Mode of arrival: wheelchair Limitations: no limitations - History of Present Illness Initial Comments: Patient is a 50-year-old female, with heart disease, presenting to emergency Department with complaints of severe abdominal pain that started about 2 hours ago. Patient states is hurting mostly in her lower abdomen, rated 10/10. She's been having some nausea, she feels fatigued. She has had no fevers, no vomiting, does feel nauseous.. She states she has a history of cholecystectomy, tubal ligation, no other abdominal surgeries. Patient states she had a normal bowel movement this morning. Patient states she has not had a menstrual cycle in approximately one year but stated she did start having a cycle again 2 weeks ago and has been bleeding for the last 2 weeks. The cycle started very heavy, she states right now it is light. She denies any dysuria. She denies any chest pain or shortness of breath. Patient has no further complaints at this time. Upon arrival to the ER, her blood pressure is low at 95/61, rest of vitals are normal. - Related Data Home Medications Medication Instructions Recorded Confirmed ALPRAZolam [Xanax] 0.5 mg PO TID PRN 10/11/20 10/11/20 Montelukast Sodium [Singulair] 10 mg PO HS 10/11/20 10/11/20 Venlafaxine HCl ER [Effexor Xr] 75 mg PO DAILY 10/11/20 10/11/20 Previous Rx's Medication Instructions Recorded Acetaminophen Tab [Tylenol] 650 mg PO Q6HR PRN tab 12/25/18 Aspirin 81 mg PO DAILY chew 12/25/18 Atorvastatin [Lipitor] 40 mg PO HS #30 tab 12/25/18 Clopidogrel [Plavix] 75 mg PO DAILY #30 tab 12/28/18 Isosorbide Mononitrate ER [Imdur] 60 mg PO BID #60 tab.er.24h 12/29/18 NIFEdipine XL [Procardia XL] 60 mg PO DAILY #30 tab.er.24 12/29/18 Nitroglycerin Sl Tabs [Nitrostat] 0.4 mg SUBLINGUAL Q5M PRN #25 tab 12/29/18 Allergies Allergy/AdvReac Type Severity Reaction Status Date / Time ceftibuten [From Cedax] Allergy Unknown Verified 10/11/20 11:25 fluticasone propionate Allergy Unknown Verified 10/11/20 11:25 [From Advair Diskus] salmeterol xinafoate Allergy Unknown Verified 10/11/20 11:25 [From Advair Diskus] Review of Systems ROS Statement: Those systems with pertinent positive or pertinent negative responses have been documented in the HPI. ROS Other: All systems not noted in ROS Statement are negative. Past Medical History Past Medical History: Myocardial Infarction ([place]), Skin Disorder Additional Past Medical History / Comment(s): ARTHRITIS, Exzema Last Myocardial Infarction Date:: 12/22/18 History of Any Multi-Drug Resistant Organisms: None Reported Past Surgical History: Cholecystectomy, Heart Catheterization, Tubal Ligation Additional Past Surgical History / Comment(s): 12/22/18 Came in as a stemi--no intervention required during heart cath Past Anesthesia/Blood Transfusion Reactions: No Reported Reaction Past Psychological History: No Psychological Hx Reported Past Alcohol Use History: None Reported Past Drug Use History: None Reported - Past Family History Mother History Unknown: Yes Family Medical History: No Reported History Brother(s) History Unknown: Yes Family Medical History: No Reported History General Exam - General Exam Comments Initial Comments: GENERAL: Patient is in severe pain, holding abdomen, crying, apprears pale. HEAD: Atraumatic, normocephalic. EYES: Pupils equal round and reactive to light, extraocular movements intact, sclera anicteric, conjunctiva are normal. Eyelids were unremarkable. ENT: TMs normal, nares patent, oropharynx clear without exudates. Moist mucous membranes. NECK: Normal range of motion, supple without lymphadenopathy or JVD. LUNGS: Unlabored respirations. Breath sounds clear to auscultation bilaterally and equal. No wheezes rales or rhonchi. HEART: Regular rate and rhythm without murmurs, rubs or gallops. ABDOMEN: Diffuse abdominal tenderness, more severe in the lower abdomen. Soft, normoactive bowel sounds. No guarding, no rebound. No masses appreciated. MUSCULOSKELETAL: Normal extremities with adequate strength and normal range of motion, no pitting or edema. No clubbing or cyanosis. NEUROLOGICAL: Patient is alert and oriented x 3. Motor and sensory are also intact. Cranial nerves II through XII grossly intact. Symmetrical smile. Normal speech, normal gait. PSYCH: Normal mood, normal affect. SKIN: Warm, Dry, normal turgor, no rashes or lesions noted. Limitations: no limitations Rectal exam: Present: normal inspection, normal rectal tone, heme (+) stool (most likely positive secondary to vaginal bleeding) External exam: Present: normal external exam Speculum exam: Present: vaginal bleeding. Absent: cervical discharge, foreign body By manual exam: Present: cervical motion tenderness Course Vital Signs 10/11/20 10/11/20 10/11/20 10:51 11:20 12:00 Temperature 98.7 F Pulse Rate 96 95 Respiratory 16 20 Rate Blood Pressure 95/61 104/64 108/64 O2 Sat by Pulse 100 100 Oximetry 10/11/20 10/11/20 10/11/20 12:04 12:30 14:29 Temperature 97.6 F Pulse Rate 92 88 Respiratory 18 16 Rate Blood Pressure 108/66 105/68 O2 Sat by Pulse 100 100 99 Oximetry 10/11/20 14:39 Temperature 97.8 F Pulse Rate 87 Respiratory 18 Rate Blood Pressure 99/62 O2 Sat by Pulse 98 Oximetry - Reevaluation(s) Reevaluation #1: 10/11/20 12:06 patient was immediately sent to computed tomography scan after blood draw, upon reviewing images, there appears to be a mass in her lower abdomen, the computed tomography scan was read by Dr. Black, initially read as mild ascending cholangitis, no other abnormality seen. I did contact Dr. Black about the mass who did do an addendum to his reading, states that there is most likely left ovary measuring 6 x 8 x 12 cm. Given the patient's symptoms, ovarian torsion should be considered. I did immediately order a pelvic ultrasound. During this time, patient's hemoglobin returned at 6.3, lactic acid was 2.4. Type and screen and 1 unit of blood was ordered. 10/11/20 15:20 Reevaluation #2: 10/11/20 13:10 Ultrasound reveals a large septated left ovarian cyst. No evidence of torsion. Medical Decision Making - Medical Decision Making Patient is a 50-year-old female presenting with severe lower abdominal pain for the past 2-1/2 hours. Upon arrival to the ER, patient's blood pressure is 95/61, rest of vitals were normal. Patient appeared in moderate distress, pale. After obtaining labs, she was sent immediately to computed tomography scan. There appears to be a large left-sided ovarian cyst, ultrasound reveals no evidence of torsion. Patient has been having a menstrual cycle for the past 2 weeks, no menstrual cycle for the past year previous to this. Patient's hemoglobin returned at 6.3, lactic acid was 2.4. Type and screen was ordered and one unit of blood was given. Patient's pain has been controlled with medica tions, she has been resting comfortably. 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 Patient was accepted by Dr. Christian. Case discussed in detail with Dr. Singh. - Lab Data Result diagrams: 10/11/20 11:17 10/11/20 11:17 Lab Results 10/11/20 10/11/20 10/11/20 Range/Units 11:17 11:17 11:17 WBC 4.9 (3.8-10.6) k/uL RBC 3.38 L (3.80-5.40) m/uL Hgb 6.3 L* (11.4-16.0) gm/dL Hct 21.8 L (34.0-46.0) % MCV 64.4 L (80.0-100.0) fL MCH 18.6 L (25.0-35.0) pg MCHC 28.9 L (31.0-37.0) g/dL RDW 18.2 H (11.5-15.5) % Plt Count 317 (150-450) k/uL MPV 6.7 Neutrophils % (Manual) 78 % Lymphocytes % (Manual) 16 % Monocytes % (Manual) 6 % Metamyelocytes % 1 % Neutrophils # (Manual) 3.82 (1.3-7.7) k/uL Lymphocytes # (Manual) 0.78 L (1.0-4.8) k/uL Monocytes # (Manual) 0.29 (0-1.0) k/uL Metamyelocytes # (Man) 0.05 H (0) k/uL Nucleated RBCs 0 (0-0) /100 WBC Manual Slide Review Performed Hypochromasia Marked Poikilocytosis Slight Anisocytosis Slight Microcytosis Marked PT 9.6 (9.0-12.0) sec INR 0.9 (<1.2) APTT 19.9 L (22.0-30.0) sec Sodium 137 (137-145) mmol/L Potassium 3.7 (3.5-5.1) mmol/L Chloride 107 (98-107) mmol/L Carbon Dioxide 22 (22-30) mmol/L Anion Gap 8 mmol/L BUN 11 (7-17) mg/dL Creatinine 0.73 (0.52-1.04) mg/dL Est GFR (CKD-EPI)AfAm >90 (>60 ml/min/1.73 sqM) Est GFR (CKD-EPI)NonAf >90 (>60 ml/min/1.73 sqM) Glucose 141 H (74-99) mg/dL Lactic Ac Sepsis Rflx Plasma Lactic Acid Sergio (0.7-2.0) mmol/L Calcium 8.9 (8.4-10.2) mg/dL Total Bilirubin 0.7 (0.2-1.3) mg/dL AST 19 (14-36) U/L ALT 18 (4-34) U/L Alkaline Phosphatase 63 (38-126) U/L Total Protein 6.4 (6.3-8.2) g/dL Albumin 3.8 (3.5-5.0) g/dL Amylase 36 (30-110) U/L Lipase 84 (23-300) U/L Urine Color Urine Appearance (Clear) Urine pH (5.0-8.0) Ur Specific [place] (1.001-1.035) Urine Protein (Negative) Urine Glucose (UA) (Negative) Urine Ketones (Negative) Urine Blood (Negative) Urine Nitrite (Negative) Urine Bilirubin (Negative) Urine Urobilinogen (<2.0) mg/dL Ur Leukocyte Esterase (Negative) Urine RBC (0-5) /hpf Urine WBC (0-5) /hpf Ur Squamous Epith Cells (0-4) /hpf Urine Mucus (None) /hpf Stool Occult Blood (Negative) Blood Type Blood Type Confirm Blood Type Recheck Bld Type Recheck Status Antibody Screen Crossmatch Spec Expiration Date 10/11/20 10/11/20 10/11/20 Range/Units 11:17 11:39 12:19 WBC (3.8-10.6) k/uL RBC (3.80-5.40) m/uL Hgb (11.4-16.0) gm/dL Hct (34.0-46.0) % MCV (80.0-100.0) fL MCH (25.0-35.0) pg MCHC (31.0-37.0) g/dL RDW (11.5-15.5) % Plt Count (150-450) k/uL MPV Neutrophils % (Manual) % Lymphocytes % (Manual) % Monocytes % (Manual) % Metamyelocytes % % Neutrophils # (Manual) (1.3-7.7) k/uL Lymphocytes # (Manual) (1.0-4.8) k/uL Monocytes # (Manual) (0-1.0) k/uL Metamyelocytes # (Man) (0) k/uL Nucleated RBCs (0-0) /100 WBC Manual Slide Review Hypochromasia Poikilocytosis Anisocytosis Microcytosis PT (9.0-12.0) sec INR (<1.2) APTT (22.0-30.0) sec Sodium (137-145) mmol/L Potassium (3.5-5.1) mmol/L Chloride (98-107) mmol/L Carbon Dioxide (22-30) mmol/L Anion Gap mmol/L BUN (7-17) mg/dL Creatinine (0.52-1.04) mg/dL Est GFR (CKD-EPI)AfAm (>60 ml/min/1.73 sqM) Est GFR (CKD-EPI)NonAf (>60 ml/min/1.73 sqM) Glucose (74-99) mg/dL Lactic Ac Sepsis Rflx Y Plasma Lactic Acid Sergio 2.4 H* (0.7-2.0) mmol/L Calcium (8.4-10.2) mg/dL Total Bilirubin (0.2-1.3) mg/dL AST (14-36) U/L ALT (4-34) U/L Alkaline Phosphatase (38-126) U/L Total Protein (6.3-8.2) g/dL Albumin (3.5-5.0) g/dL Amylase (30-110) U/L Lipase (23-300) U/L Urine Color Yellow Urine Appearance Clear (Clear) Urine pH 7.0 (5.0-8.0) Ur Specific [place] >1.050 H (1.001-1.035) Urine Protein Trace H (Negative) Urine Glucose (UA) Negative (Negative) Urine Ketones Negative (Negative) Urine Blood Large H (Negative) Urine Nitrite Negative (Negative) Urine Bilirubin Negative (Negative) Urine Urobilinogen <2.0 (<2.0) mg/dL Ur Leukocyte Esterase Small H (Negative) Urine RBC 89 H (0-5) /hpf Urine WBC 5 (0-5) /hpf Ur Squamous Epith Cells 3 (0-4) /hpf Urine Mucus Rare H (None) /hpf Stool Occult Blood (Negative) Blood Type Blood Type Confirm Blood Type Recheck Bld Type Recheck Status Antibody Screen Crossmatch Spec Expiration Date 10/11/20 10/11/20 10/11/20 Range/Units 12:19 12:52 13:47 WBC (3.8-10.6) k/uL RBC (3.80-5.40) m/uL Hgb (11.4-16.0) gm/dL Hct (34.0-46.0) % MCV (80.0-100.0) fL MCH (25.0-35.0) pg MCHC (31.0-37.0) g/dL RDW (11.5-15.5) % Plt Count (150-450) k/uL MPV Neutrophils % (Manual) % Lymphocytes % (Manual) % Monocytes % (Manual) % Metamyelocytes % % Neutrophils # (Manual) (1.3-7.7) k/uL Lymphocytes # (Manual) (1.0-4.8) k/uL Monocytes # (Manual) (0-1.0) k/uL Metamyelocytes # (Man) (0) k/uL Nucleated RBCs (0-0) /100 WBC Manual Slide Review Hypochromasia Poikilocytosis Anisocytosis Microcytosis PT (9.0-12.0) sec INR (<1.2) APTT (22.0-30.0) sec Sodium (137-145) mmol/L Potassium (3.5-5.1) mmol/L Chloride (98-107) mmol/L Carbon Dioxide (22-30) mmol/L Anion Gap mmol/L BUN (7-17) mg/dL Creatinine (0.52-1.04) mg/dL Est GFR (CKD-EPI)AfAm (>60 ml/min/1.73 sqM) Est GFR (CKD-EPI)NonAf (>60 ml/min/1.73 sqM) Glucose (74-99) mg/dL Lactic Ac Sepsis Rflx Plasma Lactic Acid Sergio (0.7-2.0) mmol/L Calcium (8.4-10.2) mg/dL Total Bilirubin (0.2-1.3) mg/dL AST (14-36) U/L ALT (4-34) U/L Alkaline Phosphatase (38-126) U/L Total Protein (6.3-8.2) g/dL Albumin (3.5-5.0) g/dL Amylase (30-110) U/L Lipase (23-300) U/L Urine Color Urine Appearance (Clear) Urine pH (5.0-8.0) Ur Specific [place] (1.001-1.035) Urine Protein (Negative) Urine Glucose (UA) (Negative) Urine Ketones (Negative) Urine Blood (Negative) Urine Nitrite (Negative) Urine Bilirubin (Negative) Urine Urobilinogen (<2.0) mg/dL Ur Leukocyte Esterase (Negative) Urine RBC (0-5) /hpf Urine WBC (0-5) /hpf Ur Squamous Epith Cells (0-4) /hpf Urine Mucus (None) /hpf Stool Occult Blood Positive H (Negative) Blood Type A Positive Blood Type Confirm A Positive Blood Type Recheck No Previous Record Bld Type Recheck Status CABO Indicated Antibody Screen NEGATIVE Crossmatch See Detail Spec Expiration Date 10/14/2020 - 3706 Critical Care Time Critical Care Time: Yes Total Critical Care Time: 35 (Patient presenting with severe abdominal pain, appeared pale. Computed tomography scan reveals evidence of a large left ovarian cysts, hemoglobin came back at 6.3. One unit of blood was transfused, patient was admitted.) Disposition Clinical Impression: Acute anemia, Ovarian cyst, Abdominal pain Disposition: ADMITTED IP TO THIS [facility] Condition: Good Referrals: Alberto Merino MD [Primary Care Provider] - 1-2 days Decision Date: 10/11/20 Decision Time: 13:51
[2020-10-11 12:08] LABS: INR 0.9 (<1.2); Prothrombin Time 9.6 sec (9.0-12.0)
[2020-10-11 12:24] LABS: Partial Thromboplastin Time 19.9 sec (22.0-30.0)
--- NOTE | 2020-10-11 13:12 | US ---
EXAMINATION TYPE: US pelvis complete transvag DATE OF EXAM: 10/11/2020 COMPARISON: NONE CLINICAL HISTORY: large ovarian cyst, severe pain, rule out torsion. f/u to ct scan TECHNIQUE: Transvaginal (TV) and Transabdominal (TA) . Transabdominal sonographic images of the pel vis were acquired. Transvaginal sonographic images were medically necessary to better assess the fol lowing anatomy: EXAM MEASUREMENTS: Uterus: 9.1 x 4.9 x 5.9 cm Endometrial Stripe: 1.4 cm Right Ovary: 3.0 x 2.4 x 2.3 cm Left Ovary: 11.7 x 7.7 x 9.7 cm 1. Uterus: Anteverted wnl 2. Endometrium: Appears thickened. 3. Right Ovary: wnl 4. Left Ovary: Large septated cystic area seen measuring 11.4 x 6.7 x 7.6 cm. This correlates with t he cyst from CT examination. Spectral, color and waveform doppler imaging shows good arterial and venous flow within the ovaries ; there is no evidence for ovarian torsion. 5. Bilateral Adnexa: wnl 6. Posterior cul-de-sac: wnl IMPRESSION: 1. Large septated left ovarian cyst. 2. No evidence of torsion, vascular arterial and venous color flow evident bilaterally
[2020-10-11 13:35] LABS: Appearance,Urine Clear (Clear); Bilirubin,Urine Negative (Negative); Blood,Urine Large (Negative); Color,Urine Yellow; Glucose,Urine (UA) Negative (Negative); Ketones,Urine Negative (Negative); Leukocyte Esterase,Urine Small (Negative); Mucus,Urine Rare /hpf; Nitrite,Urine Negative (Negative); Protein,Urine Trace (Negative); RBC,Urine 89 /hpf (0-5); Squamous Epithelial Cell,Urine 3 /hpf (0-4); Urobilinogen,Urine <2.0 mg/dL (<2.0); WBC,Urine 5 /hpf (0-5)
[2020-10-11 13:42] LABS: Lymphocytes # (M) 0.78 k/uL (1.0-4.8); Metamyelocytes # (M) 0.05 k/uL (0); Metamyelocytes % 1 %; Monocytes # (M) 0.29 k/uL (0-1.0); Neutrophils # (M) 3.82 k/uL (1.3-7.7); Neutrophils % (M) 78 %; Nucleated Red Blood Cells 0 /100 WBC (0-0); Total Cells Counted 200
[2020-10-11] MEDS ORDERED: HYDROmorphone 0.5 MG/0.5 ML SYRINGE IVP STA (13:45)
[2020-10-11] MEDS ORDERED: METOCLOPRAMIDE 5 MG/ML 2 ML VIAL IVP STA (13:46)
[2020-10-11] MEDS ORDERED: ONDANSETRON 4 MG/2 ML VIAL IVP PRN (13:47)
[2020-10-11] MEDS ORDERED: NALOXONE 0.4 MG/ML 1 ML VIAL IV PRN (13:47)
[2020-10-11] MEDS ORDERED: HYDROmorphone 0.5 MG/0.5 ML SYRINGE IVP PRN (13:47)
[2020-10-11] MEDS ORDERED: SODIUM CHLORIDE 0.9% 1,000 ML IV SCH (14:00)
[2020-10-11 14:01] LABS: Specific Gravity,Urine >1.050 (1.001-1.035)
[2020-10-11] MEDS ORDERED: ACETAMINOPHEN TAB 325 MG TAB PO PRN (15:29)
[2020-10-11] MEDS ORDERED: NITROGLYCERIN SL TABS 0.4 MG TAB SUBLINGUAL PRN (15:29)
--- NOTE | 2020-10-11 15:44 | P.HPIM ---
History of Present Illness This is a pleasant 50 years old female with past medical history of coronary artery spasm, he vomited by fire protection equipment technician earlier this year and was placed on Procardia and Imdur as well as aspirin and Plavix, cardiac cath did not show any abnormality and patient does not need any stent placement. Patient went into menopause about one year ago however 2 weeks and a half ago her. Came back and it was a slow and Heavy gradually but now is as low again. She is patient of Dr. Merino. This morning patient developed lower abdominal pain about 9:30 in the AM it was intense about 10/10, mainly on the left side radiating around to the back with just slight pain withdefecation. She denies any other abdominal pain, no nausea vomiting, no diarrhea, she has light brown stool. No chest pain or dyspnea. No headache. She used to smoke and quit about one year ago, no alcohol or illicit drugs. Her blood pressure is on the low side 99/62, heart rate 87, rest of Vitas looks stable. Hemoglobin low at 6.3 and patient was given 1 unit of blood transfusion. Risks of BMP and liver enzymes were unremarkable, lipase is normal. Lactic acid is elevated at 2.4. Urine sample looks concentrated with large amount of blood, most likely contami nation, also she has positive occult blood in stool with possible to wean contamination as well Pelvic ultrasound showing left ovary and large cyst about 11.4 x 6.7 x 7.6 cm. Review of Systems CONSTITUTIONAL: No fever, no malaise, no fatigue. HEENT: No recent visual problems or hearing problems. Denied any sore throat. CARDIOVASCULAR: No orthopnea, PND, no palpitations, no syncope. PULMONARY: No shortness of breath, no cough, no hemoptysis. GASTROINTESTINAL: No diarrhea, no nausea, no vomiting, no abdominal pain. Normoactive bowel sounds. NEUROLOGICAL: No headaches, no weakness, no numbness. HEMATOLOGICAL: Denies any bleeding or petechiae. GENITOURINARY: Denies any burning micturition, frequency, or urgency. MUSCULOSKELETAL/RHEUMATOLOGICAL: Denies any joint pain, swelling, or any muscle pain. ENDOCRINE: Denies any polyuria or polydipsia. Past Medical History Past Medical History: Myocardial Infarction ([place]), Skin Disorder Additional Past Medical History / Comment(s): ARTHRITIS, Exzema Last Myocardial Infarction Date:: 12/22/18 History of Any Multi-Drug Resistant Organisms: None Reported Past Surgical History: Cholecystectomy, Heart Catheterization, Tubal Ligation Additional Past Surgical History / Comment(s): 12/22/18 Came in as a stemi--no intervention required during heart cath Past Anesthesia/Blood Transfusion Reactions: No Reported Reaction Past Psychological History: No Psychological Hx Reported Past Alcohol Use History: None Reported Past Drug Use History: None Reported - Past Family History Mother History Unknown: Yes Family Medical History: No Reported History Brother(s) History Unknown: Yes Family Medical History: No Reported History Medications and Allergies Home Medications Medication Instructions Recorded Confirmed Type Acetaminophen Tab [Tylenol] 650 mg PO Q6HR PRN tab 12/25/18 10/11/20 Rx Aspirin 81 mg PO DAILY chew 12/25/18 10/11/20 Rx Atorvastatin [Lipitor] 40 mg PO HS #30 tab 12/25/18 10/11/20 Rx Clopidogrel [Plavix] 75 mg PO DAILY #30 tab 12/28/18 10/11/20 Rx Isosorbide Mononitrate ER [Imdur] 60 mg PO BID #60 tab.er.24h 12/29/18 10/11/20 Rx NIFEdipine XL [Procardia XL] 60 mg PO DAILY #30 tab.er.24 12/29/18 10/11/20 Rx Nitroglycerin Sl Tabs [Nitrostat] 0.4 mg SUBLINGUAL Q5M PRN #25 tab 12/29/18 10/11/20 Rx ALPRAZolam [Xanax] 0.5 mg PO TID PRN 10/11/20 10/11/20 History Montelukast Sodium [Singulair] 10 mg PO HS 10/11/20 10/11/20 History Venlafaxine HCl ER [Effexor Xr] 75 mg PO HS 10/11/20 10/11/20 History Allergies Allergy/AdvReac Type Severity Reaction Status Date / Time ceftibuten [From Cedax] Allergy Unknown Verified 10/11/20 15:25 fluticasone propionate Allergy Unknown Verified 10/11/20 15:25 [From Advair Diskus] salmeterol xinafoate Allergy Unknown Verified 10/11/20 15:25 [From Advair Diskus] Physical Exam Vitals: Vital Signs Temp Pulse Resp BP Pulse Ox 10/11/20 14:39 97.8 F 87 18 99/62 98 10/11/20 14:29 97.6 F 88 16 105/68 99 10/11/20 12:30 92 18 108/66 100 10/11/20 12:04 100 10/11/20 12:00 108/64 10/11/20 11:20 95 20 104/64 100 10/11/20 10:51 98.7 F 96 16 95/61 100 Intake and Output 10/11/20 10/11/20 10/11/20 06:59 14:59 22:59 Intake Total 0 Balance 0 Intake: Blood Product 0 Rc As-1 Unit 0 [id number] Other: Weight 77.111 kg GENERAL: The patient is alert and oriented x3, not in any acute distress. Well developed, well nourished. HEENT: Pupils are round and equally reacting to light. EOMI. No scleral icterus. No conjunctival pallor. Normocephalic, atraumatic. No pharyngeal erythema. No thyromegaly. CARDIOVASCULAR: S1 and S2 present. No murmurs, rubs, or gallops. PULMONARY: Chest is clear to auscultation, no wheezing or crackles. -ABDOMEN: Soft, lower abdominal tenderness, no rebound tenderness, nondistended, normoactive bowel sounds. No palpable organomegaly. MUSCULOSKELETAL: No joint swelling or deformity. EXTREMITIES: No cyanosis, clubbing, or pedal edema. NEUROLOGICAL: Gross neurological examination did not reveal any focal deficits. SKIN: No rashes. No petechiae Results CBC & Chem 7: 10/11/20 11:17 10/11/20 11:17 Labs: Abnormal Lab Results - Last 24 Hours (Table) 10/11/20 10/11/20 10/11/20 Range/Units 11:17 11:17 11:17 RBC 3.38 L (3.80-5.40) m/uL Hgb 6.3 L* (11.4-16.0) gm/dL Hct 21.8 L (34.0-46.0) % MCV 64.4 L (80.0-100.0) fL MCH 18.6 L (25.0-35.0) pg MCHC 28.9 L (31.0-37.0) g/dL RDW 18.2 H (11.5-15.5) % Lymphocytes # (Manual) 0.78 L (1.0-4.8) k/uL Metamyelocytes # (Man) 0.05 H (0) k/uL APTT 19.9 L (22.0-30.0) sec Glucose 141 H (74-99) mg/dL Plasma Lactic Acid Sergio (0.7-2.0) mmol/L Ur Specific [place] (1.001-1.035) Urine Protein (Negative) Urine Blood (Negative) Ur Leukocyte Esterase (Negative) Urine RBC (0-5) /hpf Urine Mucus (None) /hpf Stool Occult Blood (Negative) Crossmatch 10/11/20 10/11/20 10/11/20 Range/Units 11:17 12:19 12:19 RBC (3.80-5.40) m/uL Hgb (11.4-16.0) gm/dL Hct (34.0-46.0) % MCV (80.0-100.0) fL MCH (25.0-35.0) pg MCHC (31.0-37.0) g/dL RDW (11.5-15.5) % Lymphocytes # (Manual) (1.0-4.8) k/uL Metamyelocytes # (Man) (0) k/uL APTT (22.0-30.0) sec Glucose (74-99) mg/dL Plasma Lactic Acid Sergio 2.4 H* (0.7-2.0) mmol/L Ur Specific [place] >1.050 H (1.001-1.035) Urine Protein Trace H (Negative) Urine Blood Large H (Negative) Ur Leukocyte Esterase Small H (Negative) Urine RBC 89 H (0-5) /hpf Urine Mucus Rare H (None) /hpf Stool Occult Blood (Negative) Crossmatch See Detail 10/11/20 Range/Units 12:52 RBC (3.80-5.40) m/uL Hgb (11.4-16.0) gm/dL Hct (34.0-46.0) % MCV (80.0-100.0) fL MCH (25.0-35.0) pg MCHC (31.0-37.0) g/dL RDW (11.5-15.5) % Lymphocytes # (Manual) (1.0-4.8) k/uL Metamyelocytes # (Man) (0) k/uL APTT (22.0-30.0) sec Glucose (74-99) mg/dL Plasma Lactic Acid Sergio (0.7-2.0) mmol/L Ur Specific [place] (1.001-1.035) Urine Protein (Negative) Urine Blood (Negative) Ur Leukocyte Esterase (Negative) Urine RBC (0-5) /hpf Urine Mucus (None) /hpf Stool Occult Blood Positive H (Negative) Crossmatch Assessment and Plan Assessment: Pelvic Bleeding, rather than GI bleed. However both [employer] AND [employer]OL[employer] DISPATCHER and gastroenterologists were consulted from emergency room. Patient kept on Protonix. Hold aspirin and Plavix. Monitor hemoglobin. His acute blood loss anemia, status post one unit of blood transfusion Lower abdominal pain, mostly secondary to above Left ovarian cyst, septated and large 11.4 x 6.7 x 7.6 cm. Elevated lactic acid. Continue with IV fluids DVT prophylaxis: Subcutaneous heparin GI Prophylaxis: Ppi Prognosis is guarded
[2020-10-11] MEDS: SODIUM CHLORIDE 0.9% 1,000 ML IV SCH (16:49)
[2020-10-11] MEDS: MORPHINE SULFATE 4 MG/ML SYRINGE IV PRN (16:51)
[2020-10-11 19:41] LABS: Anisocytosis Slight; Basophils % (A) 0 %; Eosinophils % (A) 0 %; HCT 25.4 % (34.0-46.0); HGB 7.6 gm/dL (11.4-16.0); Hypochromasia Marked; Lymphocytes # (A) 0.5 k/uL (1.0-4.8); Lymphocytes % (A) 7 %; MCH 21.1 pg (25.0-35.0); MCHC 29.9 g/dL (31.0-37.0); Mean Platelet Volume 6.6; Microcytosis Marked; Monocytes # (A) 0.2 k/uL (0-1.0); Monocytes % (A) 4 %; Neutrophils # (A) 5.3 k/uL (1.3-7.7); Neutrophils % (A) 88 %; Platelet Count 234 k/uL (150-450); Poikilocytosis Moderate; RDW 19.9 % (11.5-15.5); WBC 6.1 k/uL (3.8-10.6)
[2020-10-11 19:42] LABS: MCV 70.5 fL (80.0-100.0)
[2020-10-11] MEDS: ALPRAZolam 0.5 MG TAB PO PRN (21:11)
[2020-10-11] MEDS: VENLAFAXINE HCL ER 75 MG CAP PO SCH (21:11)
[2020-10-11] MEDS: MONTELUKAST 10 MG TAB PO SCH (21:11)
[2020-10-11] MEDS: ISOSORBIDE MONONITRATE ER 60 MG TAB.ER.24H PO SCH (21:11)
[2020-10-11] MEDS: ATORVASTATIN 40 MG TAB PO SCH (21:11)
[2020-10-12] MEDS: SODIUM CHLORIDE 0.9% 1,000 ML IV SCH ×2 (04:37→17:46)
[2020-10-12] MEDS: PANTOPRAZOLE 40 MG/10 ML VIAL IVP SCH (08:59)
[2020-10-12] MEDS: ALPRAZolam 0.5 MG TAB PO PRN ×2 (08:59→19:12)
[2020-10-12] MEDS: ISOSORBIDE MONONITRATE ER 60 MG TAB.ER.24H PO SCH ×2 (09:00→21:07)
[2020-10-12] MEDS: MORPHINE SULFATE 4 MG/ML SYRINGE IV PRN (12:52)
--- NOTE | 2020-10-12 13:10 | P.OBCN ---
History of Present Illness Consult date: 10/12/20 Requesting physician: Vinod Lebron Reason for consult: pelvic pain, ovarian cyst Chief complaint: Acute left lower quadrant abdominal pain History of present illness: This is a 50-year-old female 2 para 2 who presents to the emergency room yesterday with a sudden onset of left lower quadrant pain that started approximate 2 hours prior to arrival. She stated the pain wrapped around to her left back. She stated it was crampy in nature and was 10 out of 10 when it hits. She has been having regular bowel movements and denies any bowel issues. She has not seen a wealth management advisor in many years. She does state she had an abnormal Pap smear after her son was born 25 years ago and did have a cryo- cautery. She denies any other abnormal Pap smears and her last Pap smear was at least 5 years or more ago. Her last menstrual period was around the time she had a heart attack in December 2018. She began bleeding in early September at first lightly and then it started to become heavier and is almost stopped now. This went on for approximately 2-1/2 weeks. At its heaviest she stated she was changing 3 pads per day. She did have some clots. When I arrived to the floor today the nurses stated that her pain was completely gone and she was hungry. When I arrived in her room she was starting to have some of the pain, back more on the left side. Computed tomography scan showed an enlarged left ovary measuring 6.9 x 8.6 x 12 cm and also some minimal wall thickening the descending colon with questionable colitis. Her pelvic ultrasound showed uterus measuring 9.1 x 4.9 x 5.9 cm with an endometrial thickness of 1.4 centimeters. Her left ovary measured 11.7 x 7.7 x 9.7 with a septated cystic area but no torsion noted. Good blood flow was noted. CA-125 was ordered and is 5.1 which is normal. Obstetrical history: . 2 vaginal deliveries. One child at 3 months old. Gynecologic history: No history of sexually transmitted diseases. Last Pap smear was over 5 years ago. Social history: She is . She works at the [employer] in [place]. Review of Systems Constitutional: Denies chills, Denies fever Gastrointestinal: Reports abdominal pain (Left lower quadrant), Denies change in bowel habits, Denies nausea, Denies vomiting Genitourinary: Reports abnormal vaginal bleeding, Reports flank pain (Left), Reports pelvic pain (Left lower quadrant) Menstruation: Reports period heavy, Reports postmenopausal Musculoskeletal: Reports low back pain Past Medical History Past Medical History: Myocardial Infarction ([place]), Skin Disorder Additional Past Medical History / Comment(s): ARTHRITIS, Exzema Last Myocardial Infarction Date:: 12/22/18 History of Any Multi-Drug Resistant Organisms: None Reported Past Surgical History: Cholecystectomy, Heart Catheterization, Tubal Ligation Additional Past Surgical History / Comment(s): 12/22/18 Came in as a stemi--no intervention required during heart cath Past Anesthesia/Blood Transfusion Reactions: No Reported Reaction Past Psychological History: No Psychological Hx Reported Smoking Status: Former smoker (Quit December 2018) Past Alcohol Use History: None Reported Past Drug Use History: None Reported - Past Family History Mother History Unknown: Yes Family Medical History: No Reported History Brother(s) History Unknown: Yes Family Medical History: No Reported History Additional Family Medical History / Comment(s): She states she has a couple maternal aunts that did have cancer but she is unsure of the type of cancer. Medications and Allergies Home Medications Medication Instructions Recorded Confirmed Type Acetaminophen Tab [Tylenol] 650 mg PO Q6HR PRN tab 12/25/18 10/11/20 Rx Aspirin 81 mg PO DAILY chew 12/25/18 10/11/20 Rx Atorvastatin [Lipitor] 40 mg PO HS #30 tab 12/25/18 10/11/20 Rx Clopidogrel [Plavix] 75 mg PO DAILY #30 tab 12/28/18 10/11/20 Rx Isosorbide Mononitrate ER [Imdur] 60 mg PO BID #60 tab.er.24h 12/29/18 10/11/20 Rx NIFEdipine XL [Procardia XL] 60 mg PO DAILY #30 tab.er.24 12/29/18 10/11/20 Rx Nitroglycerin Sl Tabs [Nitrostat] 0.4 mg SUBLINGUAL Q5M PRN #25 tab 12/29/18 10/11/20 Rx ALPRAZolam [Xanax] 0.5 mg PO TID PRN 10/11/20 10/11/20 History Montelukast Sodium [Singulair] 10 mg PO HS 10/11/20 10/11/20 History Venlafaxine HCl ER [Effexor Xr] 75 mg PO HS 10/11/20 10/11/20 History Allergies Allergy/AdvReac Type Severity Reaction Status Date / Time ceftibuten [From Cedax] Allergy Unknown Verified 10/11/20 15:25 fluticasone propionate Allergy Unknown Verified 10/11/20 15:25 [From Advair Diskus] salmeterol xinafoate Allergy Unknown Verified 10/11/20 15:25 [From Advair Diskus] Exam Osteopathic Statement: *. No significant issues noted on an osteopathic structural exam other than those noted in the History and Physical/Consult. Vital Signs Temp Pulse Pulse Resp BP BP Pulse Ox 10/12/20 08:00 97.9 F 89 18 122/75 98 10/12/20 02:00 98.1 F 91 16 106/64 95 10/11/20 21:17 125/75 10/11/20 20:00 98.3 F 91 16 97/60 96 10/11/20 16:47 97.8 F 86 16 98/63 95 10/11/20 15:42 97.3 F L 92 16 103/65 98 10/11/20 15:09 97.3 F L 92 16 103/65 98 10/11/20 14:39 97.8 F 87 18 99/62 98 10/11/20 14:29 97.6 F 88 16 105/68 99 Intake and Output 10/11/20 10/12/20 10/12/20 22:59 06:59 14:59 Intake Total 310 Balance 310 Intake: Blood Product 310 Rc As-1 Unit 310 [id number] Other: # Voids 1 2 Weight 77.111 kg Gen.: Well-developed well-nourished female in mild distress due to pain Abdomen: Soft, tender in the left lower quadrant and suprapubic area. No rebound or guarding. Tenderness extends to the left flank area. Exam is difficult due to patient pain, but it does appear that there is a mass palpated in the left lower quadrant. Pelvic exam: Deferred at this time. Gwendolyn-pad shows scant brown discharge. Extremities: Negative Homans Results Result Diagrams: 10/11/20 18:29 10/11/20 11:17 Abnormal Lab Results - Last 24 Hours (Table) 10/11/20 10/11/20 10/11/20 Range/Units 11:17 12:19 12:19 RBC (3.80-5.40) m/uL Hgb (11.4-16.0) gm/dL Hct (34.0-46.0) % MCV (80.0-100.0) fL MCH (25.0-35.0) pg MCHC (31.0-37.0) g/dL RDW (11.5-15.5) % Lymphocytes # (1.0-4.8) k/uL Lymphocytes # (Manual) 0.78 L (1.0-4.8) k/uL Metamyelocytes # (Man) 0.05 H (0) k/uL Ur Specific [place] >1.050 H (1.001-1.035) Urine Protein Trace H (Negative) Urine Blood Large H (Negative) Ur Leukocyte Esterase Small H (Negative) Urine RBC 89 H (0-5) /hpf Urine Mucus Rare H (None) /hpf Stool Occult Blood (Negative) Crossmatch See Detail 10/11/20 10/11/20 Range/Units 12:52 18:29 RBC 3.60 L (3.80-5.40) m/uL Hgb 7.6 L (11.4-16.0) gm/dL Hct 25.4 L (34.0-46.0) % MCV 70.5 L D (80.0-100.0) fL MCH 21.1 L (25.0-35.0) pg MCHC 29.9 L (31.0-37.0) g/dL RDW 19.9 H (11.5-15.5) % Lymphocytes # 0.5 L (1.0-4.8) k/uL Lymphocytes # (Manual) (1.0-4.8) k/uL Metamyelocytes # (Man) (0) k/uL Ur Specific [place] (1.001-1.035) Urine Protein (Negative) Urine Blood (Negative) Ur Leukocyte Esterase (Negative) Urine RBC (0-5) /hpf Urine Mucus (None) /hpf Stool Occult Blood Positive H (Negative) Crossmatch CT scan - abdomen: report reviewed CT scan - pelvis: report reviewed Assessment and Plan (1) Mass of left ovary Current Visit: Yes Status: Acute Code(s): N83.8 - OT NONINFLAMMATORY DISORD OF OVARY, FALLOP AND BROAD LIGMT SNOMED Code(s): 89280362832096801 (2) Left lower quadrant abdominal pain Current Visit: Yes Status: Acute Code(s): R10.32 - LEFT LOWER QUADRANT PAIN SNOMED Code(s): 688158979 (3) Endometrial thickening on ultrasound Current Visit: Yes Status: Acute Code(s): R93.89 - ABNORMAL FINDINGS ON DX IMAGING OF OT BODY STRUCTURES SNOMED Code(s): 217851998 (4) Postmenopausal bleeding Current Visit: Yes Status: Acute Code(s): N95.0 - POSTMENOPAUSAL BLEEDING SNOMED Code(s): 07865172 Plan: I explained the ultrasound and CT findings to the patient. I explained that she does have a large left ovarian complex cystic mass and a normal CA-125. I did explain that 10% of the time and ovarian cancer can have a normal CA-125. I also explained that she does have a thickened endometrial lining and postmenopausal bleeding. She will need either an endometrial biopsy or dilation and curettage to sample the lining of her uterus to rule out endometrial cancer. I have recommended that she see [facility] oncology for evaluation and probable complete hysterectomy due to both the postmenopausal bleeding with endometrial thickening and large left ovarian cystic mass. If she is stable enough to go home today, I recommend that she see me in the office this week so I can facilitate referral to [facility] oncology as an outpatient and possibly perform a endometrial biopsy in the office. If her condition worsens or her pain worsens, I would recommend she be transferred to [facility] oncology for further care. If transfer is needed, I would recommend either Dr. Diego Alcantara or Dr. Bakari Mace.
[2020-10-12] MEDS: FERROUS SULFATE 325 MG TAB PO SCH ×2 (13:11→17:46)
[2020-10-12 14:41] LABS: Anisocytosis Slight; Hypochromasia Marked; MCH 21.1 pg (25.0-35.0); MCHC 30.4 g/dL (31.0-37.0); MCV 69.5 fL (80.0-100.0); Mean Platelet Volume 6.5; Microcytosis Marked; Platelet Count 292 k/uL (150-450); Poikilocytosis Moderate; RBC 3.31 m/uL (3.80-5.40); RDW 19.9 % (11.5-15.5); WBC 4.3 k/uL (3.8-10.6)
--- NOTE | 2020-10-12 20:56 | P.CONS ---
History of Present Illness - Reason for Consult Consult date: 10/12/20 Anemia Requesting physician: Vinod E Sheet - Chief Complaint Abdominal/pelvic pain - History of Present Illness 50-year-old female with medical history significant for prior cholecystectomy and coronary artery disease who presented to the hospital due to complaints of abdominal/pelvic pain. The patient reports developing severe left lower quadrant abdominal pain. She denies prior episodes of similar pain. She denies any nausea, vomiting or altered bowel function. Imaging performed after presentation including pelvic ultrasound showed a large last ovarian complex cystic mass. On questioning the patient has been having vaginal bleeding over the past 2-1/2 weeks which she states were light for the first week, heavy for the second week and have again become light. The patient denies any signs or symptoms of GI bleeding. She was previously had EGD and colonoscopy over 10 years ago but no recent endoscopy. Stool testing was positive for occult blood with hemoglobin 6.3 with microcytic indices currently 7.6 after transfusion down from her baseline of approximately 12. Computed tomography scan of the abdomen is significant for possible right ascending colitis as well as the ovarian cyst as described. Review of Systems REVIEW OF SYSTEMS: CONSTITUTIONAL: Denies any fevers, chills, weight change or fatigue. CARDIOVASCULAR: Denies any chest pain, palpitations high or low blood pressures RESPIRATORY: Denies any shortness of breath, hemoptysis or cough. GENITOURINARY: No dysuria or hematuria, she does report to half weeks of postmenopausal bleeding. MUSCULOSKELETAL: No weakness reported. SKIN: Denies any new rashes or lesions, jaundice or pallor. PSYCHIATRIC: Denies any depression or anxiety. NEUROLOGY: Denies headache, denies any new focal deficits. EARS/NOSE/THROAT: No recent hearing change, congestion, nasal discharge or sore throat. EYES: No pain in eyes, discharge or change in vision. GASTROINTESTINAL: As per HPI. Past Medical History Past Medical History: Myocardial Infarction ([place]), Skin Disorder Additional Past Medical History / Comment(s): ARTHRITIS, Exzema Last Myocardial Infarction Date:: 12/22/18 History of Any Multi-Drug Resistant Organisms: None Reported Past Surgical History: Cholecystectomy, Heart Catheterization, Tubal Ligation Additional Past Surgical History / Comment(s): 12/22/18 Came in as a stemi--no intervention required during heart cath Past Anesthesia/Blood Transfusion Reactions: No Reported Reaction Past Psychological History: No Psychological Hx Reported Past Alcohol Use History: None Reported Past Drug Use History: None Reported - Past Family History Mother History Unknown: Yes Family Medical History: No Reported History Brother(s) History Unknown: Yes Family Medical History: No Reported History Medications and Allergies Home Medications Medication Instructions Recorded Confirmed Type Acetaminophen Tab [Tylenol] 650 mg PO Q6HR PRN tab 12/25/18 10/11/20 Rx Aspirin 81 mg PO DAILY chew 12/25/18 10/11/20 Rx Atorvastatin [Lipitor] 40 mg PO HS #30 tab 12/25/18 10/11/20 Rx Clopidogrel [Plavix] 75 mg PO DAILY #30 tab 12/28/18 10/11/20 Rx Isosorbide Mononitrate ER [Imdur] 60 mg PO BID #60 tab.er.24h 12/29/18 10/11/20 Rx NIFEdipine XL [Procardia XL] 60 mg PO DAILY #30 tab.er.24 12/29/18 10/11/20 Rx Nitroglycerin Sl Tabs [Nitrostat] 0.4 mg SUBLINGUAL Q5M PRN #25 tab 12/29/18 10/11/20 Rx ALPRAZolam [Xanax] 0.5 mg PO TID PRN 10/11/20 10/11/20 History Montelukast Sodium [Singulair] 10 mg PO HS 10/11/20 10/11/20 History Venlafaxine HCl ER [Effexor Xr] 75 mg PO HS 10/11/20 10/11/20 History Allergies Allergy/AdvReac Type Severity Reaction Status Date / Time ceftibuten [From Cedax] Allergy Unknown Verified 10/11/20 15:25 egg Allergy Nausea & Verified 10/12/20 17:50 Vomiting & Diarrhea fluticasone propionate Allergy Unknown Verified 10/11/20 15:25 [From Advair Diskus] peanut Allergy Nausea & Verified 10/12/20 17:50 Vomiting & Diarrhea salmeterol xinafoate Allergy Unknown Verified 10/11/20 15:25 [From Advair Diskus] shellfish derived [Shellfish] Allergy Nausea & Verified 10/12/20 17:50 Vomiting & Diarrhea Physical Exam Vitals: Vital Signs Temp Pulse Pulse Resp BP BP Pulse Ox 10/12/20 08:00 97.9 F 89 18 122/75 98 10/12/20 02:00 98.1 F 91 16 106/64 95 10/11/20 21:17 125/75 10/11/20 20:00 98.3 F 91 16 97/60 96 10/11/20 16:47 97.8 F 86 16 98/63 95 10/11/20 15:42 97.3 F L 92 16 103/65 98 10/11/20 15:09 97.3 F L 92 16 103/65 98 10/11/20 14:39 97.8 F 87 18 99/62 98 10/11/20 14:29 97.6 F 88 16 105/68 99 10/11/20 12:30 92 18 108/66 100 10/11/20 12:04 100 10/11/20 12:00 108/64 Intake and Output 10/11/20 10/12/20 10/12/20 22:59 06:59 14:59 Intake Total 310 Balance 310 Intake: Blood Product 310 Rc As-1 Unit 310 [id number] Other: # Voids 1 2 Weight 77.111 kg On physical examination, patient appears comfortable in no apparent distress. HEAD: Normocephalic, atraumatic. EYES: No scleral icterus. No conjunctival injection. MOUTH: No lesions, tongue midline. NECK: Trachea midline, no gross abnormalities. CHEST: Clear to auscultation with no wheezing or rhonchi appreciated. HEART: Regular rate and rhythm. ABDOMEN: Soft, obese, mildly tender to palpation in the left lower abdomen. [place] el sounds are positive. No organomegaly. No guarding or rigidity. EXTREMITIES: No pedal edema. SKIN: No rashes, no jaundice. NEUROLOGIC: Alert and oriented x3. No focal deficits. Results CBC & Chem 7: 10/12/20 14:16 10/11/20 11:17 Labs: Abnormal Lab Results - Last 24 Hours (Table) 10/11/20 10/11/20 10/11/20 Range/Units 11:17 11:17 11:17 RBC 3.38 L (3.80-5.40) m/uL Hgb 6.3 L* (11.4-16.0) gm/dL Hct 21.8 L (34.0-46.0) % MCV 64.4 L (80.0-100.0) fL MCH 18.6 L (25.0-35.0) pg MCHC 28.9 L (31.0-37.0) g/dL RDW 18.2 H (11.5-15.5) % Lymphocytes # (1.0-4.8) k/uL Lymphocytes # (Manual) 0.78 L (1.0-4.8) k/uL Metamyelocytes # (Man) 0.05 H (0) k/uL APTT 19.9 L (22.0-30.0) sec Glucose 141 H (74-99) mg/dL Plasma Lactic Acid Sergio (0.7-2.0) mmol/L Ur Specific [place] (1.001-1.035) Urine Protein (Negative) Urine Blood (Negative) Ur Leukocyte Esterase (Negative) Urine RBC (0-5) /hpf Urine Mucus (None) /hpf Stool Occult Blood (Negative) Crossmatch 10/11/20 10/11/20 10/11/20 Range/Units 11:17 12:19 12:19 RBC (3.80-5.40) m/uL Hgb (11.4-16.0) gm/dL Hct (34.0-46.0) % MCV (80.0-100.0) fL MCH (25.0-35.0) pg MCHC (31.0-37.0) g/dL RDW (11.5-15.5) % Lymphocytes # (1.0-4.8) k/uL Lymphocytes # (Manual) (1.0-4.8) k/uL Metamyelocytes # (Man) (0) k/uL APTT (22.0-30.0) sec Glucose (74-99) mg/dL Plasma Lactic Acid Sergio 2.4 H* (0.7-2.0) mmol/L Ur Specific [place] >1.050 H (1.001-1.035) Urine Protein Trace H (Negative) Urine Blood Large H (Negative) Ur Leukocyte Esterase Small H (Negative) Urine RBC 89 H (0-5) /hpf Urine Mucus Rare H (None) /hpf Stool Occult Blood (Negative) Crossmatch See Detail 10/11/20 10/11/20 Range/Units 12:52 18:29 RBC 3.60 L (3.80-5.40) m/uL Hgb 7.6 L (11.4-16.0) gm/dL Hct 25.4 L (34.0-46.0) % MCV 70.5 L D (80.0-100.0) fL MCH 21.1 L (25.0-35.0) pg MCHC 29.9 L (31.0-37.0) g/dL RDW 19.9 H (11.5-15.5) % Lymphocytes # 0.5 L (1.0-4.8) k/uL Lymphocytes # (Manual) (1.0-4.8) k/uL Metamyelocytes # (Man) (0) k/uL APTT (22.0-30.0) sec Glucose (74-99) mg/dL Plasma Lactic Acid Sergio (0.7-2.0) mmol/L Ur Specific [place] (1.001-1.035) Urine Protein (Negative) Urine Blood (Negative) Ur Leukocyte Esterase (Negative) Urine RBC (0-5) /hpf Urine Mucus (None) /hpf Stool Occult Blood Positive H (Negative) Crossmatch CT scan - abdomen: report reviewed (Computed tomography scan of the abdomen with a large left ovarian mass and possible descending colitis.) Assessment and Plan (1) Anemia associated with acute blood loss Narrative/Plan: 50-year-old female who presented to the hospital with left lower abdominal/pelvic pain which was severe in nature and new in onset. No prior ep isodes of similar pain. The patient denies any other abdominal symptoms with no change in bowel habits, blood per rectum, melanotic stool, nausea or vomiting. Remote history of EGD and colonoscopy. She has been having 2-1/2 weeks of postmenopausal bleeding. Evaluation with imaging including computed tomography scan and ultrasound showed a large left ovarian mass. She has been seen by the [facility] service who have recommended possible biopsy, D&C or referral to gynecology oncology for hysterectomy in the setting of postmenopausal bleeding which is likely the cause of her anemia. Current Visit: Yes Status: Acute Code(s): D62 - ACUTE POSTHEMORRHAGIC ANEMIA SNOMED Code(s): 262065146 (2) Left lower quadrant abdominal pain Current Visit: Yes Status: Acute Code(s): R10.32 - LEFT LOWER QUADRANT PAIN SNOMED Code(s): 850317472 (3) Mass of left ovary Current Visit: Yes Status: Acute Code(s): N83.8 - OTH NONINFLAMMATORY DISORD OF OVARY, FALLOP AND BROAD LIGMT SNOMED Code(s): 05043578571306752 Plan: Supportive care Okay for diet as tolerated Continue to monitor hemoglobin and hematocrit and transfuse as needed Appreciate recommendations from the [facility] service with plan for either outpatient biopsy or D&C or referral to tertiary center for evaluation by gynecology oncology Patient is due for screening colonoscopy, however at this time no signs or symptoms of GI bleeding, and recommendations are that she follows up after treatment of the left ovarian mass at which time colonoscopy can be set up in the outpatient setting No plans for endoscopic evaluation at this time Thank you for allowing us to participate in the care of the patient, the GI service will stand by, please call us back with any questions or concerns
[2020-10-12] MEDS: MONTELUKAST 10 MG TAB PO SCH (21:07)
[2020-10-12] MEDS: ATORVASTATIN 40 MG TAB PO SCH (21:07)
[2020-10-12] MEDS: VENLAFAXINE HCL ER 75 MG CAP PO SCH (21:07)
--- NOTE | 2020-10-12 22:36 | P.PN ---
Subjective This is a pleasant 50 years old female with past medical history of coronary artery spasm, he vomited by hosted services analyst earlier this year and was placed on Procardia and Imdur as well as aspirin and Plavix, cardiac cath did not show any abnormality and patient does not need any stent placement. Patient went into menopause about one year ago however 2 weeks and a half ago her. Came back and it was a slow and Heavy gradually but now is as low again. She is patient of Dr. Merino. This morning patient developed lower abdominal pain about 9:30 in the AM it was intense about 10/10, mainly on the left side radiating around to the back with just slight pain withdefecation. She denies any other abdominal pain, no nausea vomiting, no diarrhea, she has light brown stool. No chest pain or dyspnea. No headache. She used to smoke and quit about one year ago, no alcohol or illicit drugs. Her blood pressure is on the low side 99/62, heart rate 87, rest of Vitas looks stable. Hemoglobin low at 6.3 and patient was given 1 unit of blood transfusion. Risks of BMP and liver enzymes were unremarkable, lipase is normal. Lactic acid is elevated at 2.4. Urine sample looks concentrated with large amount of blood, most likely contamination, also she has positive occult blood in stool with possible to wean contamination as well Pelvic ultrasound showing left ovary and large cyst about 11.4 x 6.7 x 7.6 cm. 10/29/2020 Patient feels better today, she more comfortable her lower abdominal pain almost disappeared or very minimal. Her vaginal bleeding almost stopped only a few dribbling Vitals are stable. Repeat labs today showing Hemoglobin down to 7. But she is not hypotensive. She is not on anticoagulation but she is on IV Protonix she still have some spotting with fresh blood spots in the morning and brown spots that on, however given her hemoglobin on December 2019 was 11.8, then I think the benefits of blood transfusion overweigh the risks. I called the bedside nurse adilene and recommended the patient received 1 unit of blood transfusion. However patient denied to get blood transfusion now and she preferred to wait. Risks and benefits are explained for the patient by nurse, Also per adilene the bedside nurse she does not want to check her hemoglobin now and she wanted to be checked in the morning. As an alternative the patient is already on iron pills ferrous sulfate twice daily, we are going to increase that to 3 times a day and check hemoglobin in the morning. Patient has been evaluated by overedger who ordered [id number] is within normal reference range at 5.1. Dr. Shah from [facility]ON[facility] evaluated the patient and recommended endometrial biopsy to rule out endometrial cancer. Also she preferred evaluation by ENVIRONMENTAL HEALTH SAFETY MANAGER oncology. We will since this is a ENVIRONMENTAL HEALTH SAFETY MANAGER case, we will defer the decision whether patient needs to see ENVIRONMENTAL HEALTH SAFETY MANAGER oncology as an outpatient or transfer to [facility] to the ENVIRONMENTAL HEALTH SAFETY MANAGER team. I don't think the patient have GI bleed, she has brown stool and her positive occult blood in his stool most likely is contamination from her vaginal bleed however GI team evaluation is appreciated And they recommend no need for screening colonoscopy now and it can be deferred as an outpatient after her ovarian mass and vaginal bleeding addressed first Review of Systems CONSTITUTIONAL: No fever, no malaise, no fatigue. HEENT: No recent visual problems or hearing problems. Denied any sore throat. CARDIOVASCULAR: No orthopnea, PND, no palpitations, no syncope. PULMONARY: No shortness of breath, no cough, no hemoptysis. GASTROINTESTINAL: No diarrhea, no nausea, no vomiting, no abdominal pain. Normoactive bowel sounds. Active Medications Generic Name Dose Route Start Last Admin Trade Name Freq PRN Reason Stop Dose Admin Acetaminophen 650 mg 10/11/20 15:29 Acetaminophen Tab 325 Mg Tab PO Q6HR PRN Fever and/ or Mild Pain Alprazolam 0.5 mg 10/11/20 15:31 10/12/20 19:12 Alprazolam 0.5 Mg Tab PO 0.5 mg TID PRN Administration Anxiety Atorvastatin Calcium 40 mg 10/11/20 21:00 10/12/20 21:07 Atorvastatin 40 Mg Tab PO 40 mg HS MARGARITA Administration Ferrous Sulfate 325 mg 10/12/20 07:30 10/12/20 17:46 Ferrous Sulfate 325 Mg Tab PO 325 mg BID-W/MEALS MARGARITA Administration Hydromorphone HCl 0.5 mg 10/11/20 13:47 Hydromorphone 0.5 Mg/0.5 Ml Syringe IVP Q3HR PRN Moderate Pain Sodium Chloride 1,000 mls @ 75 mls/hr 10/11/20 15:45 10/12/20 17:46 Saline 0.9% IV 75 mls/hr .[id number] MARGARITA Administration Isosorbide Mononitrate 60 mg 10/11/20 21:00 10/12/20 21:07 Isosorbide Mononitrate Er 60 Mg Tab.Er.24h PO 60 mg BID MARGARITA Administration Montelukast Sodium 10 mg 10/11/20 21:00 10/12/20 21:07 Montelukast 10 Mg Tab PO 10 mg HS MARGARITA Administration Morphine Sulfate 4 mg 10/11/20 13:47 10/12/20 12:52 Morphine Sulfate 4 Mg/Ml Syringe IV 4 mg Q4HR PRN Administration Severe Pain Naloxone HCl 0.2 mg 10/11/20 13:47 Naloxone 0.4 Mg/Ml 1 Ml Vial IV Q2M PRN Opioid Reversal Nitroglycerin 0.4 mg 10/11/20 15:29 Nitroglycerin Sl Tabs 0.4 Mg Tab SUBLINGUAL Q5M PRN Chest Pain Ondansetron HCl 4 mg 10/11/20 13:47 10/12/20 13:00 Ondansetron 4 Mg/2 Ml Vial IVP 4 mg Q8HR PRN Administration Nausea And Vomiting Pantoprazole Sodium 40 mg 10/12/20 09:00 10/12/20 08:59 Pantoprazole 40 Mg/10 Ml Vial IVP 40 mg DAILY MARGARITA Administration Venlafaxine HCl 75 mg 10/11/20 21:00 10/12/20 21:07 Venlafaxine Hcl Er 75 Mg Cap PO 75 mg HS MARGARITA Administration Objective - Vital Signs Vital signs: Vital Signs Temp 98.6 F 10/12/20 13:04 Pulse 91 10/12/20 13:04 Resp 18 10/12/20 13:04 BP 128/78 10/12/20 13:04 Pulse Ox 98 10/12/20 13:04 Intake & Output 10/11/20 10/12/20 10/12/20 18:59 06:59 18:59 Intake Total 310 Balance 310 Weight 77.111 kg Intake: Blood Product 310 Rc As-1 Unit 310 [id number] Other: # Voids 1 2 - Exam GENERAL: The patient is alert and oriented x3, not in any acute distress. Well developed, well nourished. HEENT: Pupils are round and equally reacting to light. EOMI. No scleral icterus. No conjunctival pallor. Normocephalic, atraumatic. No pharyngeal erythema. No thyromegaly. CARDIOVASCULAR: S1 and S2 present. No murmurs, rubs, or gallops. PULMONARY: Chest is clear to auscultation, no wheezing or crackles. -ABDOMEN: Soft, mild lower abdominal tenderness better than yesterday, nondistended, normoactive bowel sounds. No palpable organomegaly. MUSCULOSKELETAL: No joint swelling or deformity. EXTREMITIES: No cyanosis, clubbing, or pedal edema. NEUROLOGICAL: Gross neurological examination did not reveal any focal deficits. SKIN: No rashes. no petechiae. - Labs CBC & Chem 7: 10/12/20 14:16 10/11/20 11:17 Labs: Abnormal Lab Results - Last 24 Hours (Table) 10/11/20 10/12/20 Range/Units 18:29 14:16 RBC 3.60 L 3.31 L (3.80-5.40) m/uL Hgb 7.6 L 7.0 L (11.4-16.0) gm/dL Hct 25.4 L 23.0 L (34.0-46.0) % MCV 70.5 L D 69.5 L (80.0-100.0) fL MCH 21.1 L 21.1 L (25.0-35.0) pg MCHC 29.9 L 30.4 L (31.0-37.0) g/dL RDW 19.9 H 19.9 H (11.5-15.5) % Lymphocytes # 0.5 L (1.0-4.8) k/uL Assessment and Plan Assessment: -Pelvic Bleeding, rather than GI bleed. However both ENVIRONMENTAL HEALTH SAFETY MANAGER and gas troenterologists were consulted from emergency room. Patient kept on Protonix. Hold aspirin and Plavix. Monitor hemoglobin. ENVIRONMENTAL HEALTH SAFETY MANAGER input is appreciated and they recommended endometrial biopsy or D&C , we will defer the decision whether to transfer patient to [facility] or outpatient ENVIRONMENTAL HEALTH SAFETY MANAGER oncology to the ENVIRONMENTAL HEALTH SAFETY MANAGER team as this is a ENVIRONMENTAL HEALTH SAFETY MANAGER case , Discussed with staff -acute blood loss anemia, status post one unit of blood transfusion. Hemoglobin had dropped from 7.6 down to 7.0 and recommended for the patient to receive another unit of blood transfusion . However patient declined. Keep monitor and vitals, signs of bleeding and monitor hemoglobin. Continue with further sulfate 3 times a day -Lower abdominal pain, mostly secondary to above -Left ovarian cyst, septated and large 11.4 x 6.7 x 7.6 cm. -Elevated lactic acid. Continue with IV fluids. Came back to normal -DVT prophylaxis: No Subcutaneous heparin in view of her bleeding and low hemoglobin. Continue with mechanical -GI Prophylaxis: Ppi Prognosis is guarded Dr. Merino will resume the care of the patient tomorrow
[2020-10-13] MEDS ORDERED: FERROUS SULFATE 325 MG TAB PO SCH (07:30)
[2020-10-13 08:15] LABS: Anisocytosis Moderate; Basophils % (A) 0 %; Eosinophils % (A) 0 %; HCT 24.3 % (34.0-46.0); HGB 7.4 gm/dL (11.4-16.0); Hypochromasia Marked; Lymphocytes # (A) 0.9 k/uL (1.0-4.8); Lymphocytes % (A) 20 %; MCH 21.3 pg (25.0-35.0); MCHC 30.6 g/dL (31.0-37.0); MCV 69.6 fL (80.0-100.0); Mean Platelet Volume 6.6; Microcytosis Marked; Monocytes # (A) 0.3 k/uL (0-1.0); Monocytes % (A) 6 %; Neutrophils # (A) 3.1 k/uL (1.3-7.7); Neutrophils % (A) 71 %; Platelet Count 314 k/uL (150-450); Poikilocytosis Moderate; RBC 3.49 m/uL (3.80-5.40); RDW 20.1 % (11.5-15.5); WBC 4.3 k/uL (3.8-10.6)
--- NOTE | 2020-10-13 08:29 | P.PN ---
Progress Note - Text Progress Note Date: 10/13/20 Patient states that she hasn't had any worsening pain since yesterday. She has not taken any further pain medication since yesterday afternoon. Bleeding has stopped. I have advised her again that I would like to see her in the office this week so that I can arrange referral to [facility] oncology. I spoke with Dr. Merino who agrees and will plan for discharge later today.
[2020-10-13] MEDS: PANTOPRAZOLE 40 MG/10 ML VIAL IVP SCH (08:39)
[2020-10-13] MEDS: ISOSORBIDE MONONITRATE ER 60 MG TAB.ER.24H PO SCH (08:41)
[2020-10-13 08:55] VITALS: BP 129/84; PULSE 78; RESP 18; TEMP 98.5
--- NOTE | 2020-10-13 09:21 | P.DS ---
Providers Date of admission: 10/11/20 14:07 Attending physician: Alberto Merino Consults: 10/11/20 13:48 Consult Physician Urgent Consulting Provider: Ayesha Shah Consult Reason/Comments: Large ovarian cysts, acute anemia, severe abdominal pain Do you want consulting provider notified?: Yes Primary care physician: Alberto Merino Hospital Course: This is discharge on a 50-year-old white female found to have ovarian mass. Gynecology has been counseled that and she will follow-up as an outpatient after getting pain control for appropriate follow-up with gynecologic oncology. The patient understands her prognosis at this time and will be discharged in guarded condition. She seems to be tolerating diet with no fever. Patient Condition at Discharge: Good Plan - Discharge Summary Discharge Rx Participant: No New Discharge Prescriptions: New Ferrous Sulfate [Iron (65 MG Elemental)] 325 mg PO TID-W/MEALS #90 tab oxyCODONE-APAP 7.5-325MG [Percocet 7.5-325 mg] 1 tab PO Q6HR PRN 15 Days #60 tab PRN Reason: Pain Continue Acetaminophen Tab [Tylenol] 650 mg PO Q6HR PRN tab PRN Reason: Fever and/ or Mild Pain Aspirin 81 mg PO DAILY chew Atorvastatin [Lipitor] 40 mg PO HS #30 tab Clopidogrel [Plavix] 75 mg PO DAILY #30 tab Isosorbide Mononitrate ER [Imdur] 60 mg PO BID #60 tab.er.24h NIFEdipine XL [Procardia XL] 60 mg PO DAILY #30 tab.er.24 Nitroglycerin Sl Tabs [Nitrostat] 0.4 mg SUBLINGUAL Q5M PRN #25 tab PRN Reason: Chest Pain Venlafaxine HCl ER [Effexor XR] 75 mg PO HS Montelukast Sodium [Singulair] 10 mg PO HS ALPRAZolam [Xanax] 0.5 mg PO TID PRN PRN Reason: Anxiety Discharge Medication List Acetaminophen Tab [Tylenol] 650 mg PO Q6HR PRN tab 12/25/18 [Rx] Aspirin 81 mg PO DAILY chew 12/25/18 [Rx] Atorvastatin [Lipitor] 40 mg PO HS #30 tab 12/25/18 [Rx] Clopidogrel [Plavix] 75 mg PO DAILY #30 tab 12/28/18 [Rx] Isosorbide Mononitrate ER [Imdur] 60 mg PO BID #60 tab.er.24h 12/29/18 [Rx] NIFEdipine XL [Procardia XL] 60 mg PO DAILY #30 tab.er.24 12/29/18 [Rx] Nitroglycerin Sl Tabs [Nitrostat] 0.4 mg SUBLINGUAL Q5M PRN #25 tab 12/29/18 [Rx] ALPRAZolam [Xanax] 0.5 mg PO TID PRN 10/11/20 [History] Montelukast Sodium [Singulair] 10 mg PO HS 10/11/20 [History] Venlafaxine HCl ER [Effexor XR] 75 mg PO HS 10/11/20 [History] Ferrous Sulfate [Iron (65 MG Elemental)] 325 mg PO TID-W/MEALS #90 tab 10/13/20 [Rx] oxyCODONE-APAP 7.5-325MG [Percocet 7.5-325 mg] 1 tab PO Q6HR PRN 15 Days #60 tab 10/13/20 [Rx] Follow up Appointment(s)/Referral(s): Alberto Merino MD [Primary Care Provider] - 1-2 days Ayesha Shah DO [Doctor of Osteopathic Medicine] - 3 Days Patient Instructions/Handouts: Ovarian Cyst (ED) Activity/Diet/Wound Care/Special Instructions: Make an appt with Dr Shah, for this week on Tuesday, or Tuesday.
== END 2020-10-13 10:50 | disposition home or self-care (01) | DRG 760 ==
LOC: EC 10:40 → 6PED 14:07
PROVIDERS: ADMIT Family Medicine; ATTEND Family Medicine
PROC: 30233N1 Transfusion of Nonautologous Red Blood Cells into Peripheral Vein, Percutaneous Approach (ICD-10-PCS; principal; 2020-10-11)
DX: N83.9 Noninflammatory disorder of ovary, fallopian tube and broad ligament, unspecified (principal); D62 Acute posthemorrhagic anemia; N95.0 Postmenopausal bleeding; R93.89 Abnormal findings on diagnostic imaging of other specified body structures; I25.10 Atherosclerotic heart disease of native coronary artery without angina pectoris; I25.2 Old myocardial infarction; L30.9 Dermatitis, unspecified; M19.90 Unspecified osteoarthritis, unspecified site; Z79.82 Long term (current) use of aspirin; Z79.02 Long term (current) use of antithrombotics/antiplatelets; Z79.899 Other long term (current) drug therapy; Z87.891 Personal history of nicotine dependence; Z90.49 Acquired absence of other specified parts of digestive tract; Z87.19 Personal history of other diseases of the digestive system; Z98.890 Other specified postprocedural states; Z98.51 Tubal ligation status; Z88.1 Allergy status to other antibiotic agents; Z88.8 Allergy status to other drugs, medicaments and biological substances; Z91.012 Allergy to eggs; Z91.010 Allergy to peanuts; Z91.013 Allergy to seafood
CPT/HCPCS: 36415; 74177; 76830; 76856; 80053; 81001; 82150; 82272; 83605; 83690; 85025; 85027; 85610; 85730; 86304; 86850; 86900; 86901; 86920; 93975; 96361; 96374; 96375; 99291

== ENCOUNTER → 2021-01-06 | Outpatient (CLI) | payer BC | END | disposition home or self-care (01) | LOC: LABWHC1 13:34 | PROVIDERS: ATTEND Family Medicine | DX: Z20.822 Contact with and (suspected) exposure to COVID-19 (principal) | CPT/HCPCS: U0003; C9803; U0005 ==

== ENCOUNTER → 2021-08-04 | Outpatient (CLI) | payer BC | END | disposition home or self-care (01) | LOC: LABWHC1 14:00 | PROVIDERS: ATTEND Family Medicine | DX: Z20.822 Contact with and (suspected) exposure to COVID-19 (principal) | CPT/HCPCS: U0003; U0005 ==

== ENCOUNTER → 2021-09-10 | Outpatient (CLI) | payer BC ==
[2021-09-10 19:34] LABS: ALT 79 U/L (8-44); AST 45 U/L (13-35); Chol/HDL Ratio 3.69 Ratio; LDL Cholesterol,Calculated 46.6 mg/dL (0.0-131.0)
== END | disposition home or self-care (01) ==
LOC: LABWHC1 11:16
PROVIDERS: ATTEND Internal Medicine
DX: E78.2 Mixed hyperlipidemia (principal)
CPT/HCPCS: 36415; 80061; 84450; 84460

== ENCOUNTER 2021-09-24 22:12 | Emergency (ER) | payer BC ==
[2021-09-24] MEDS ORDERED: ACETAMINOPHEN TAB 500 MG TAB PO STA ×2 (22:25→22:40)
[2021-09-24] MEDS ORDERED: IBUPROFEN 600 MG TAB PO STA (22:25)
--- NOTE | 2021-09-24 22:59 | ED ---
General Adult HPI - General Chief complaint: Upper Respiratory Infection Stated complaint: Fever,Cough,Congestion Time Seen by Provider: 09/24/21 22:18 Source: patient Mode of arrival: ambulatory Limitations: no limitations - History of Present Illness Initial comments: 51-year-old female with a past medical history of NM presents to the emergency room for a chief complaint of cough. For the past 2 days patient has had a dry cough. States that today she started to have a fever. Patient took 500 mg of Tylenol 2 hours prior to arrival. Patient cannot take Motrin. Patient denies shortness of breath or chest pain. Patient was exposed to Alaniz virus 5 days ago.Patient has no other complaints at this time including shortness of breath, chest pain, abdominal pain, nausea or vomiting, headache, or visual changes. - Related Data Home Medications Medication Instructions Recorded Confirmed ALPRAZolam [Xanax] 0.5 mg PO TID PRN 10/11/20 10/11/20 Montelukast Sodium [Singulair] 10 mg PO HS 10/11/20 10/11/20 Venlafaxine HCl ER [Effexor XR] 75 mg PO HS 10/11/20 10/11/20 Previous Rx's Medication Instructions Recorded Acetaminophen Tab [Tylenol] 650 mg PO Q6HR PRN tab 12/25/18 Aspirin 81 mg PO DAILY chew 12/25/18 Atorvastatin [Lipitor] 40 mg PO HS #30 tab 12/25/18 Clopidogrel [Plavix] 75 mg PO DAILY #30 tab 12/28/18 Isosorbide Mononitrate ER [Imdur] 60 mg PO BID #60 tab.er.24h 12/29/18 NIFEdipine XL [Procardia XL] 60 mg PO DAILY #30 tab.er.24 12/29/18 Nitroglycerin Sl Tabs [Nitrostat] 0.4 mg SUBLINGUAL Q5M PRN #25 tab 12/29/18 Ferrous Sulfate [Iron (65 MG 325 mg PO TID-W/MEALS #90 tab 10/13/20 Elemental)] oxyCODONE-APAP 7.5-325MG [Percocet 1 tab PO Q6HR PRN 15 Days #60 tab 10/13/20 7.5-325 mg] Allergies Allergy/AdvReac Type Severity Reaction Status Date / Time ceftibuten [From Cedax] Allergy Unknown Verified 10/11/20 15:25 egg Allergy Nausea & Verified 10/12/20 17:50 Vomiting & Diarrhea fluticasone propionate Allergy Unknown Verified 10/11/20 15:25 [From Advair Diskus] peanut Allergy Nausea & Verified 10/12/20 17:50 Vomiting & Diarrhea salmeterol xinafoate Allergy Unknown Verified 10/11/20 15:25 [From Advair Diskus] shellfish derived [Shellfish] Allergy Nausea & Verified 10/12/20 17:50 Vomiting & Diarrhea Review of Systems ROS Statement: Those systems with pertinent positive or pertinent negative responses have been documented in the HPI. ROS Other: All systems not noted in ROS Statement are negative. Past Medical History Past Medical History: Myocardial Infarction (NM), Skin Disorder Additional Past Medical History / Comment(s): ARTHRITIS, Exzema Last Myocardial Infarction Date:: 12/22/18 History of Any Multi-Drug Resistant Organisms: None Reported Past Surgical History: Cholecystectomy, Heart Catheterization, Tubal Ligation Additional Past Surgical History / Comment(s): 12/22/18 Came in as a stemi--no intervention required during heart cath Past Anesthesia/Blood Transfusion Reactions: No Reported Reaction Past Psychological History: No Psychological Hx Reported Smoking Status: Never smoker Past Alcohol Use History: None Reported Past Drug Use History: None Reported - Past Family History Mother History Unknown: Yes Family Medical History: No Reported History Brother(s) History Unknown: Yes Family Medical History: No Reported History Additional Family Medical History / Comment(s): She states she has a couple maternal aunts that did have cancer but she is unsure of the type of cancer. General Exam Limitations: no limitations General appearance: alert, in no apparent distress Head exam: Present: atraumatic Eye exam: Present: normal appearance, PERRL, EOMI. Absent: scleral icterus, conjunctival injection ENT exam: Present: normal exam, mucous membranes moist Neck exam: Present: normal inspection, full ROM. Absent: tenderness Respiratory exam: Present: normal lung sounds bilaterally. Absent: respiratory distress, wheezes Cardiovascular Exam: Present: regular rate, normal rhythm, normal heart sounds GI/Abdominal exam: Present: soft, normal bowel sounds. Absent: distended, tenderness Neurological exam: Present: alert Course Vital Signs 09/24/21 22:14 Temperature 101.6 F H Pulse Rate 112 H Respiratory 19 Rate Blood Pressure 135/70 O2 Sat by Pulse 97 Oximetry Medical Decision Making - Medical Decision Making Vitals are stable. Patient does have a fever. No respiratory distress. Physical exam unremarkable. COVID-19 is positive. X-ray is negative. Patient does want antibodies. These are administered. Patient will follow up with her doctor and return here for any worsening symptoms. - Lab Data Lab Results 09/24/21 Range/Units 22:52 Coronavirus (PCR) Detected A (Not Detectd) Disposition Clinical Impression: COVID Disposition: HOME SELF-CARE Condition: Good Instructions (If sedation given, give patient instructions): Coronavirus Disease 2019 (COVID-19) Additional Instructions: Take vitamins C, D, and zinc. Please follow up with your doctor in 1-2 days. Return to the ER for any worsening symptoms. Is patient prescribed a controlled substance at d/c from ED?: No Referrals: Alberto Merino MD [Primary Care Provider] - 1-2 days Time of Disposition: 00:20
--- NOTE | 2021-09-24 23:38 | XR ---
EXAMINATION TYPE: XR chest 2V DATE OF EXAM: 09/24/2021 COMPARISON: 12/26/2018 HISTORY: Chest pain. Fever. Cough TECHNIQUE: FINDINGS: Heart and mediastinum are normal. Lungs are clear. Diaphragm is normal. Bony thorax appears intact. IMPRESSION: Normal chest. No change.
[2021-09-25] MEDS ORDERED: SODIUM CHLORIDE 0.9% 50 ML IVPB ONE (00:15)
[2021-09-25] MEDS ORDERED: CASIRIVIMAB (REGN10933) (EUA) 600 MG, IMDEVIMAB (REGN10987) (EUA) 600 MG in SODIUM CHLO... IVPB ONE (00:15)
[2021-09-25 01:01] VITALS: BP 107/63; PULSE 105; RESP 16; TEMP 100.3
== END 2021-09-25 01:14 | disposition home or self-care (01) ==
LOC: EC 22:12
DX: U07.1 COVID-19 (principal); I25.2 Old myocardial infarction; Z88.8 Allergy status to other drugs, medicaments and biological substances; Z91.012 Allergy to eggs; Z91.013 Allergy to seafood
CPT/HCPCS: 87635; 71046; 99283; 96365; Q0243

== ENCOUNTER → 2022-11-15 | Outpatient (CLI) | payer BC ==
--- NOTE | 2022-11-16 20:48 | MM ---
Reason for Exam: Screening (asymptomatic). Last mammogram was performed 9 year(s) and 11 month(s) ago. Patient History: Menarche at age 11. First Full-Term at age 19. Hysterectomy at age 50. Risk Values: Charlee 5 year model risk: 1.0%. NCI Lifetime model risk: 7.7%. Prior Study Comparison: 08/01/2009 Bilateral Screening Mammogram, [facility]. 04/14/2011 Bilateral Screening Mammogram, [facility]. 12/26/2012 Bilateral Screening Mammogram, [facility]. Tissue Density: The breast tissue is heterogeneously dense. This may lower the sensitivity of mammography. Findings: Analyzed By CAD. Asymmetric density just lateral to the retroareolar plane right cc view at an anterior depth becomes more defined on 3-D images. No priors available for comparison purposes. This may represent superimposition shadow but further evaluation is recommended. Otherwise, no discrete abnormality is seen. Overall Assessment: Incomplete: need additional imaging evaluation, BI-RAD 0 Management: Special View Mammogram of the right breast. Including spot 3-D CC, 3-D CC rolled medial, spot 3-D MLO, and 3-D lateral views. Targeted right breast ultrasound if any persisting abnormality. [facility] will attempt to contact patient to return for supplemental views and ultrasound if indicated. Electronically signed and approved by: Nikia Louis M.D. Radiologist
== END | disposition home or self-care (01) ==
LOC: RADMAMWWP 16:08
PROVIDERS: ATTEND Family Medicine
DX: Z12.31 Encounter for screening mammogram for malignant neoplasm of breast (principal)
CPT/HCPCS: 77063; 77067

== ENCOUNTER → 2022-11-18 | Outpatient (CLI) | payer BC ==
--- NOTE | 2022-11-18 09:34 | MM ---
Reason for Exam: Additional evaluation requested from abnormal screening. Last screening mammogram was performed less than 1 month ago. Patient History: Menarche at age 11. First Full-Term at age 19. Hysterectomy at age 50. Risk Values: Charlee 5 year model risk: 1.0%. NCI Lifetime model risk: 7.7%. Tissue Density: Right: The breast tissue is heterogeneously dense. This may lower the sensitivity of mammography. Findings: Analyzed By CAD. Under compression a persistent suspicious distortion is not identified. Mediolateral view appears normal. Findings may be summation density. Precautionary follow up in 6 months is recommended. Overall Assessment: Probably benign, BI-RAD 3 Management: Diagnostic Mammogram of the right breast in 6 months. A clinical breast exam by your physician is recommended on an annual basis and results should be correlated with mammographic findings. This exam should not preclude additional follow-up of suspicious palpable abnormalities. Results were given to the patient verbally at the time of exam. Electronically signed and approved by: Dave Black D.O. Radiologis
== END | disposition home or self-care (01) ==
LOC: RADMAMWWP 08:17
PROVIDERS: ATTEND Family Medicine
DX: R92.8 Other abnormal and inconclusive findings on diagnostic imaging of breast (principal)
CPT/HCPCS: 77061; 77065

== ENCOUNTER → 2023-04-27 | Outpatient (CLI) | payer BC ==
--- NOTE | 2023-04-27 09:02 | MM ---
Reason for Exam: Follow-up at short interval from prior study. Last screening mammogram was performed 5 month(s) ago. Patient History: Menarche at age 11. First Full-Term at age 19. Hysterectomy at age 50. Risk Values: Charlee 5 year model risk: 1.0%. NCI Lifetime model risk: 7.7%. Prior Study Comparison: 12/26/2012 Bilateral Screening Mammogram, [facility]. 11/15/2022 Bilateral MG 3D screening mammo w/cad, [facility]. 11/18/2022 Right MG 3D work up w/cad RT, [facility]. Tissue Density: Right: There are scattered fibroglandular densities. Findings: Analyzed By CAD. Stable appearance of fibroglandular tissue. No new suspicious masses, calcifications or distortions. Overall Assessment: Benign, BI-RAD 2 Management: Screening Mammogram of both breasts in 6 months. Results were given to the patient verbally at the time of exam. Patient should continue monthly self-breast exams. A clinical breast exam by your physician is recommended on an annual basis. This exam should not preclude additional follow-up of suspicious palpable abnormalities. Note on Charlee scores and lifetime risk: 1. A Charlee score greater than 3% is considered moderate risk. If this is the case, consider specialist referral to assess eligibility for a risk reducing agent. 2. If overall lifetime risk for the development of breast cancer is 20% or higher, the patient may qualify for future screening with alternating mammogram and breast MRI. Electronically signed and approved by: Hiram Melissa DO
== END | disposition home or self-care (01) ==
LOC: RADMAMWWP 08:35
PROVIDERS: ATTEND Family Medicine
DX: R92.8 Other abnormal and inconclusive findings on diagnostic imaging of breast (principal)
CPT/HCPCS: 77061; 77065

== ENCOUNTER 2023-12-15 21:33 | Emergency (ER) | payer BC ==
--- NOTE | 2023-12-15 21:57 | ED ---
Lower Extremity Injury HPI - General Source: patient, RN notes reviewed <Jessica Santos - Last Filed: 12/15/23 21:56> <Deepali Ware - Last Filed: 12/16/23 03:29> - General Stated Complaint: Right leg pain Time Seen by Provider: 12/15/23 21:56 - History of Present Illness Initial Comments: Patient is a 53-year-old female presented to ER with a chief complaint of right knee pain. Patient states earlier today her knee gave out on her and now is endorsing radiating pain to her ankle. Denies any known injuries or traumas. (Jessica Santos) 53-year-old female present with chief complaint of right knee pain. She states that she was at work today, which caused her to be on her feet all day. 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 She is now complaining of pain to the back of the knee which radiates down the leg. No known injury or trauma. No weakness. (Deepali Ware) - Related Data Home Medications Medication Instructions Recorded Confirmed ALPRAZolam [Xanax] 0.5 mg PO TID PRN 10/11/20 10/11/20 Montelukast Sodium [Singulair] 10 mg PO HS 10/11/20 10/11/20 Venlafaxine HCl ER [Effexor XR] 75 mg PO HS 10/11/20 10/11/20 Previous Rx's Medication Instructions Recorded Acetaminophen Tab [Tylenol] 650 mg PO Q6HR PRN tab 12/25/18 Aspirin 81 mg PO DAILY chew 12/25/18 Atorvastatin [Lipitor] 40 mg PO HS #30 tab 12/25/18 Clopidogrel [Plavix] 75 mg PO DAILY #30 tab 12/28/18 Isosorbide Mononitrate ER [Imdur] 60 mg PO BID #60 tab.er.24h 12/29/18 NIFEdipine XL [Procardia XL] 60 mg PO DAILY #30 tab.er.24 12/29/18 Nitroglycerin Sl Tabs [Nitrostat] 0.4 mg SUBLINGUAL Q5M PRN #25 tab 12/29/18 Ferrous Sulfate [Iron (65 MG 325 mg PO TID-W/MEALS #90 tab 10/13/20 Elemental)] oxyCODONE-APAP 7.5-325MG [Percocet 1 tab PO Q6HR PRN 15 Days #60 tab 10/13/20 7.5-325 mg] Allergies Allergy/AdvReac Type Severity Reaction Status Date / Time ceftibuten [From Cedax] Allergy Unknown Verified 12/15/23 22:34 egg Allergy Nausea & Verified 12/15/23 22:34 Vomiting & Diarrhea fluticasone propionate Allergy Unknown Verified 12/15/23 22:34 [From Advair Diskus] peanut Allergy Nausea & Verified 12/15/23 22:34 Vomiting & Diarrhea salmeterol xinafoate Allergy Unknown Verified 12/15/23 22:34 [From Advair Diskus] shellfish derived [Shellfish] Allergy Nausea & Verified 12/15/23 22:34 Vomiting & Diarrhea Review of Systems ROS Other: All systems not noted in ROS Statement are negative. <Jessica Santos - Last Filed: 12/15/23 21:56> ROS Other: All systems not noted in ROS Statement are negative. <Deepali Ware - Last Filed: 12/16/23 03:29> ROS Statement: Those systems with pertinent positive or pertinent negative responses have been documented in the HPI. Past Medical History Past Medical History: Myocardial Infarction ([place]), Skin Disorder Additional Past Medical History / Comment(s): ARTHRITIS, Exzema Last Myocardial Infarction Date:: 12/22/18 History of Any Multi-Drug Resistant Organisms: None Reported Past Surgical History: Cholecystectomy, Heart Catheterization, Tubal Ligation Additional Past Surgical History / Comment(s): 12/22/18 Came in as a stemi--no intervention required during heart cath Past Anesthesia/Blood Transfusion Reactions: No Reported Reaction Past Psychological History: No Psychological Hx Reported Smoking Status: Never smoker Past Alcohol Use History: None Reported Past Drug Use History: None Reported - Past Family History Mother History Unknown: Yes Family Medical History: No Reported History Brother(s) History Unknown: Yes Family Medical History: No Reported History Additional Family Medical History / Comment(s): She states she has a couple maternal aunts that did have cancer but she is unsure of the type of cancer. <Jessica Santos - Last Filed: 12/15/23 21:56> General Exam <Jessica Santos - Last Filed: 12/15/23 21:56> Limitations: no limitations General appearance: alert, in no apparent distress Head exam: Present: atraumatic, normocephalic Eye exam: Present: normal appearance Neck exam: Present: normal inspection Respiratory exam: Absent: respiratory distress Cardiovascular Exam: Present: regular rate Right Knee exam: Present: normal inspection, full ROM, tenderness (Posterior tenderness). Absent: swelling, ecchymosis, deformity, crepitus Lower Leg exam: Absent: Homans' sign Neurovascular tendon exam: Present: no vascular compromise Neurological exam: Present: alert, oriented X3 Psychiatric exam: Present: normal affect, normal mood Skin exam: Present: warm, dry <Deepali Ware - Last Filed: 12/16/23 03:29> - General Exam Comments Initial Comments: Visual Physical Exam Vital signs reviewed General: Well-appearing, nontoxic, no acute distress. Head: Normocephalic, atraumatic Eyes: PERRLA, EOMI ENT: Airway patent Chest: Nonlabored breathing Skin: No visual rash, normal skin tone Neuro: Alert and oriented 3 Musculoskeletal: No gross abnormalities (Jessica Santos) Course Vital Signs 12/15/23 12/16/23 22:32 00:23 Temperature 98 F 98.3 F Pulse Rate 80 82 Respiratory 18 18 Rate Blood Pressure 102/72 140/88 O2 Sat by Pulse 98 99 Oximetry Medical Decision Making <Jessica Santos - Last Filed: 12/15/23 21:56> <Deepali Ware - Last Filed: 12/16/23 03:29> - Medical Decision Making I performed the quick note portion of the exam. Electronically signed by Jessica Santos PA-C (Jessica Santos) Was pt. sent in by a medical professional or institution ([facility], ACC[employer]ION TUNER, urgent care, hospital, or longterm...) When possible be specific @ -No Did you speak to anyone other than the patient for history (EMS, parent, family, police, friend...)? What history was obtained from this source @ -No Did you review nursing and triage notes (agree or disagree)? Why? @ -I reviewed and agree with nursing and triage notes Were old charts reviewed (outside hosp., previous admission, EMS record, old EKG, old radiological studies, urgent care reports/EKG's, longterm records)? Report findings @ -No old charts were reviewed Differential Diagnosis (chest pain, altered mental status, abdominal pain women, abdominal pain men, vaginal bleeding, weakness, fever, dyspnea, syncope, headache, dizziness, GI bleed, back pain, seizure, CVA, palpatations, mental health, musculoskeletal)? @ -Differential Musculoskeletal Muscular strain, contusion, ligament sprain, fracture, arthritis, septic arthritis, bursitis, cellulitis, muscle spasm, nerve compression, DVT, arterial occlusion, herpes zoster, electrolyte abnormality, tumor.... This is not meant to be in all inclusive list EKG interpreted by me (3pts min.). @ -As above X-rays interpreted by me (1pt min.). @ -X-ray shows no acute findings in the right knee CT interpreted by me (1pt min.). @ -None done U/S interpreted by me (1pt. min.). @ -None done What testing was considered but not performed or refused? (CT, X-rays, U/S, labs)? Why? @ -None What meds were considered but not given or refused? Why? @ -None Did you discuss the management of the patient with other professionals (professionals i.e. , PA, ACCORDION TUNER, lab, RT, psych nurse, social services specialist, corporate lawyer, teacher, complaint investigations officer, showcase trimmer)? Give summary @ -No Was smoking cessation discussed for >3mins.? @ -No Was critical care preformed (if so, how long)? @ -No Were there social determinants of health that impacted care today? How? (Homelessness, low income, unemployed, alcoholism, drug addiction, transportation, low edu. Level, literacy, decrease access to med. care, longterm, rehab)? @ -No Was there de-escalation of care discussed even if they declined (Discuss DNR or withdrawal of care, Hospice)? DNR status @ -No What co-morbidities impacted this encounter? (DM, HTN, Smoking, COPD, CAD, Cancer, CVA, ARF, Chemo, Hep., AIDS, mental health diagnosis, sleep apnea, morbid obesity)? @ -None Was patient admitted / discharged? Hospital course, mention meds given and route, prescriptions, significant lab abnormalities, going to OR and other pertinent info. @ -53-year-old female presenting with chief complaint of right knee pain. No known injury or trauma. Workup is initiated by triage. X-ray shows no acute findings. History and physical exam were conducted. No obvious deformity. She is neurovascularly intact. Negative Homans' sign. She does have some tenderness particularly to the posterior portion of the knee. She is provided with a knee immobilizer, patient has crutches that she will use at home. She is instructed to follow-up with orthopedics, [facility]. Discharged home. Follow-up with PCP. Report back to ER with any new or worsening symptoms. Discussed return parameters and answered all questions. Patient conveyed verbal understanding and agreed to the plan. I discussed this case in detail with my attending Dr. Hunter Undiagnosed new problem with uncertain prognosis? @ -No Drug Therapy requiring intensive monitoring for toxicity (Heparin, Nitro, Insulin, Cardizem)? @ -No Were any procedures done? @ -No Diagnosis/symptom? @ -Knee pain Acute, or Chronic, or Acute on Chronic? @ -Acute Uncomplicated (without systemic symptoms) or Complicated (systemic symptoms)? @ -Uncomplicated Side effects of treatment? @ -No Exacerbation, Progression, or Severe Exacerbation? @ -No Poses a threat to life or bodily function? How? (Chest pain, [place], [place], pneumonia, PE, COPD, DKA, ARF, appy, cholecystitis, CVA, Diverticulitis, Homicidal, Suicidal, threat to staff... and all critical care pts) @ -No (Deepali Ware) Disposition <Jessica Santos - Last Filed: 12/15/23 21:56> Is patient prescribed a controlled substance at d/c from ED?: No Time of Disposition: 23:13 <Deepali Ware - Last Filed: 12/16/23 03:29> Clinical Impression: Knee pain Disposition: HOME SELF-CARE Condition: Good Instructions (If sedation given, give patient instructions): Knee Pain (ED) Additional Instructions: Follow-up with PCP and orthopedics. Report back to ER with any new or worsening symptoms. Take Motrin and Tylenol as needed for pain control. Rest, ice, and elevate the knee. Use knee immobilizer and crutches. Referrals: Alberto Merino MD [Primary Care Provider] - 1-2 days Jewel Bajwa MD [Medical Doctor] - 1-2 days
[2023-12-15 22:37] VITALS: RESP 18
[2023-12-15] MEDS: KETOROLAC 15 MG/ML 1 ML VIAL IM STA (22:41)
--- NOTE | 2023-12-15 23:03 | XR ---
EXAM: XR Right Knee, 3 Views CLINICAL HISTORY: ITS.REASON XR Reason: pain TECHNIQUE: Three views of the right knee. COMPARISON: No relevant prior studies available. FINDINGS: Bones/joints: Medial and patellofemoral compartment degenerative change. No acute fracture. No dislocation. Soft tissues: Unremarkable. IMPRESSION: No acute findings in the right knee.
[2023-12-16 00:45] VITALS: BP 140/88; PULSE 82; TEMP 98.3
== END 2023-12-16 00:26 | disposition home or self-care (01) ==
LOC: EC 21:33
DX: M25.561 Pain in right knee (principal); I25.10 Atherosclerotic heart disease of native coronary artery without angina pectoris; Z91.012 Allergy to eggs; Z91.013 Allergy to seafood; Z88.8 Allergy status to other drugs, medicaments and biological substances
CPT/HCPCS: 73562; 99283; 96372; L1830; J1885

== ENCOUNTER 2024-12-19 16:51 | Emergency (ER) | payer BC ==
[2024-12-19 16:57] VITALS: RESP 20
--- NOTE | 2024-12-19 17:57 | ED ---
General Adult HPI - General Source: patient, RN notes reviewed Mode of arrival: ambulatory Limitations: no limitations <Reshma Kumari - Last Filed: 12/19/24 17:56> <Kelly Dickens - Last Filed: 12/23/24 23:59> - General Chief complaint: Upper Respiratory Infection Stated complaint: fever Time Seen by Provider: 12/19/24 17:02 - History of Present Illness Initial comments: Quick [id number] female presenting to the emergency department URI symptoms over the past 2 days. Hide that she has been experiencing cough, fevers, congestion. Was diagnosed with bronchitis yesterday at urgent care. (Reshma Kumari) 54-year-old female presents emergency department reporting body aches, nasal congestion, sore throat and cough. Symptoms have been going on for the past 2 days. She has had fevers. She went to an urgent care yesterday and diagnosed with bronchitis. Patient was started on Tessalon Perles which she has yet to chart picker. Patient took Tylenol for fever control however this was yesterday. She has not taken anything today. Patient does report to a history of diabetes and heart problems. She denies nausea, vomiting or diarrhea. No chest pain. No other alleviating, precipitating or modifying factors (Kelly Dickens) - Related Data Home Medications Medication Instructions Recorded Confirmed ALPRAZolam [Xanax] 0.5 mg PO TID PRN 10/11/20 10/11/20 Montelukast Sodium [Singulair] 10 mg PO HS 10/11/20 10/11/20 Venlafaxine HCl ER [Effexor XR] 75 mg PO HS 10/11/20 10/11/20 Previous Rx's Medication Instructions Recorded Acetaminophen Tab [Tylenol] 650 mg PO Q6HR PRN tab 12/25/18 Aspirin 81 mg PO DAILY chew 12/25/18 Atorvastatin [Lipitor] 40 mg PO HS #30 tab 12/25/18 Clopidogrel [Plavix] 75 mg PO DAILY #30 tab 12/28/18 Isosorbide Mononitrate ER [Imdur] 60 mg PO BID #60 tab.er.24h 12/29/18 NIFEdipine XL [Procardia XL] 60 mg PO DAILY #30 tab.er.24 12/29/18 Nitroglycerin Sl Tabs [Nitrostat] 0.4 mg SUBLINGUAL Q5M PRN #25 tab 12/29/18 Ferrous Sulfate [Iron (65 MG 325 mg PO TID-W/MEALS #90 tab 10/13/20 Elemental)] oxyCODONE-APAP 7.5-325MG [Percocet 1 tab PO Q6HR PRN 15 Days #60 tab 10/13/20 7.5-325 mg] Albuterol Inhaler [Ventolin Hfa 2 puff INHALATION QID #8 gm 12/19/24 Inhaler] Allergies Allergy/AdvReac Type Severity Reaction Status Date / Time ceftibuten [From Cedax] Allergy Unknown Verified 12/15/23 22:34 egg Allergy Nausea & Verified 12/15/23 22:34 Vomiting & Diarrhea fluticasone propionate Allergy Unknown Verified 12/15/23 22:34 [From Advair Diskus] peanut Allergy Nausea & Verified 12/15/23 22:34 Vomiting & Diarrhea salmeterol xinafoate Allergy Unknown Verified 12/15/23 22:34 [From Advair Diskus] shellfish derived [Shellfish] Allergy Nausea & Verified 12/15/23 22:34 Vomiting & Diarrhea Review of Systems ROS Other: All systems not noted in ROS Statement are negative. <Reshma Kumari - Last Filed: 12/19/24 17:56> ROS Other: All systems not noted in ROS Statement are negative. <Kelly Dickens - Last Filed: 12/23/24 23:59> ROS Statement: Those systems with pertinent positive or pertinent negative responses have been documented in the HPI. Past Medical History Past Medical History: Diabetes Mellitus, Myocardial Infarction ([place]), Skin Disorder Additional Past Medical History / Comment(s): ARTHRITIS, Exzema Last Myocardial Infarction Date:: 12/22/18 History of Any Multi-Drug Resistant Organisms: None Reported Past Surgical History: Cholecystectomy, Heart Catheterization, Tubal Ligation Additional Past Surgical History / Comment(s): 12/22/18 Came in as a stemi--no intervention required during heart cath Past Anesthesia/Blood Transfusion Reactions: No Reported Reaction Past Psychological History: No Psychological Hx Reported Smoking Status: Never smoker Past Alcohol Use History: None Reported Past Drug Use History: None Reported - Past Family History Mother History Unknown: Yes Family Medical History: No Reported History Brother(s) History Unknown: Yes Family Medical History: No Reported History Additional Family Medical History / Comment(s): She states she has a couple maternal aunts that did have cancer but she is unsure of the type of cancer. <Reshma Kumari - Last Filed: 12/19/24 17:56> General Exam Limitations: no limitations <Reshma Kumari - Last Filed: 12/19/24 17:56> General appearance: alert, in no apparent distress Head exam: Present: atraumatic, normocephalic, normal inspection Eye exam: Present: normal appearance, PERRL, EOMI. Absent: scleral icterus, conjunctival injection, periorbital swelling ENT exam: Present: normal exam, mucous membranes moist Neck exam: Present: normal inspection. Absent: tenderness, meningismus, lymphadenopathy Respiratory exam: Present: normal lung sounds bilaterally. Absent: respiratory distress, wheezes, rales, rhonchi, stridor Cardiovascular Exam: Present: normal rhythm, tachycardia, normal heart sounds. Absent: systolic murmur, diastolic murmur, rubs, gallop, clicks GI/Abdominal exam: Present: soft, normal bowel sounds. Absent: distended, tenderness, guarding, rebound, rigid Extremities exam: Present: normal inspection, full ROM, normal capillary refill. Absent: tenderness, pedal edema, joint swelling, calf tenderness Back exam: Present: normal inspection Neurological exam: Present: alert, oriented X3, CN II-XII intact Psychiatric exam: Present: normal affect, normal mood Skin exam: Present: warm, dry, intact, normal color. Absent: rash <EdinKelly hernadez Mauricio - Last Filed: 12/23/24 23:59> - General Exam Comments Initial Comments: Visual Physical Exam Vital signs reviewed General: Well-appearing, nontoxic, no acute distress. Head: Normocephalic, atraumatic Eyes: PERRLA, EOMI ENT: Airway patent Chest: Nonlabored breathing Skin: No visual rash, normal skin tone Neuro: Alert and oriented 3 Musculoskeletal: No gross abnormalities (Reshma Kumari) Course Vital Signs 12/19/24 12/19/24 16:55 20:18 Temperature 102.6 F H 100.8 F H Pulse Rate 120 H 104 H Respiratory 20 20 Rate Blood Pressure 112/60 107/68 O2 Sat by Pulse 94 L 95 Oximetry Medical Decision Making <Reshma Kumari - Last Filed: 12/19/24 17:56> <ChrissieKelly Mauricio - Last Filed: 12/23/24 23:59> - Medical Decision Making I completed the quick note portion of this chart signed Reshma Kumari PA-C (Reshma Kumari) Was pt. sent in by a medical professional or institution ([facility], [employer]GE[employer] MISSILE CREWMAN, urgent care, hospital, or fpc...) When possible be specific @ -No Did you speak to anyone other than the patient for history (EMS, parent, family, police, friend...)? What history was obtained from this source @ -No Did you review nursing and triage notes (agree or disagree)? Why? @ -I reviewed and agree with nursing and triage notes Were old charts reviewed (outside hosp., previous admission, EMS record, old EKG, old radiological studies, urgent care reports/EKG's, fpc records)? Report findings @ -No old charts were reviewed Differential Diagnosis (chest pain, altered mental status, abdominal pain women, abdominal pain men, vaginal bleeding, weakness, fever, dyspnea, syncope, headache, dizziness, GI bleed, back pain, seizure, CVA, palpatations, mental health, musculoskeletal)? @ -COVID, influenza, RSV EKG interpreted by me (3pts min.). @ -Not done X-rays interpreted by me (1pt min.). @ -Yes which demonstrates no intrathoracic process CT interpreted by me (1pt min.). @ -None done U/S interpreted by me (1pt. min.). @ -None done What testing was considered but not performed or refused? (CT, X-rays, U/S, labs)? Why? @ -None What meds were considered but not given or refused? Why? @ -None Did you discuss the management of the patient with other professionals (professionals i.e. [facility], SERGEANT MISSILE CREWMAN, lab, RT, psych nurse, social service technician, licensed nurse practitioner, teacher, surveillance dual rate officer, nurse case manager)? Give summary @ -No Was smoking cessation discussed for >3mins.? @ -No Was critical care preformed (if so, how long)? @ -No Were there social determinants of health that impacted care today? How? (Homelessness, low income, unemployed, alcoholism, drug addiction, transportation, low edu. Level, literacy, decrease access to med. care, usp, rehab)? @ -No Was there de-escalation of care discussed even if they declined (Discuss DNR or withdrawal of care, Hospice)? DNR status @ -No What co-morbidities impacted this encounter? (DM, HTN, Smoking, COPD, CAD, Cancer, CVA, ARF, Chemo, Hep., AIDS, mental health diagnosis, sleep apnea, morbid obesity)? @ -Diabetes Was patient admitted / discharged? Hospital course, mention meds given and route, prescriptions, significant lab abnormalities, going to OR and other pertinent info. @ -Upon arrival patient seen and evaluated in bed 32. Thorough history and physical exam was performed. Patient was given a dose of Motrin for her fever. Viral swab was performed. Patient goes for chest x-ray. Viral swab is positive for influenza A. Discussed treatment with Tamiflu. Recommended Motrin and Tylenol alternating for fever control. She also be prescribed an inhaler. Patient may take the Tessalon Perles. She is to follow-up with her primary care doctor in 2 to 4 days. Return for any new or worsening symptoms. Patient agreeable plan was discharged in stable condition Undiagnosed new problem with uncertain prognosis? @ -No Drug Therapy requiring intensive monitoring for toxicity (Heparin, Nitro, Insulin, Cardizem)? @ -No Were any procedures done? @ -No Diagnosis/symptom? @ -Acute cough, influenza A Acute, or Chronic, or Acute on Chronic? @ -Acute Uncomplicated (without systemic symptoms) or Complicated (systemic symptoms)? @ -Complicated Side effects of treatment? @ -No Exacerbation, Progression, or Severe Exacerbation? @ -No Poses a threat to life or bodily function? How? (Chest pain, [place], [place], pneumonia, PE, COPD, DKA, ARF, appy, cholecystitis, CVA, Diverticulitis, Homicidal, Suicidal, threat to staff... and all critical care pts) @ -No (Kelly Dickens) - Lab Data Lab Results 12/19/24 Range/Units 17:38 Influenza Type A (PCR) Detected A (Not Detectd) Influenza Type B (PCR) Not Detected (Not Detectd) RSV (PCR) Not Detected (Not Detectd) SARS-CoV-2 (PCR) Not Detected (Not Detectd) Disposition <Reshma Kumari - Last Filed: 12/19/24 17:56> Is patient prescribed a controlled substance at d/c from ED?: No Time of Disposition: 20:36 <Kelly Dickens - Last Filed: 12/23/24 23:59> Clinical Impression: Fever, Influenza A Disposition: HOME SELF-CARE Condition: Stable Instructions (If sedation given, give patient instructions): Influenza (ED) Additional Instructions: Alternate Motrin with Tylenol every 4 hours for fever control. You are due for Tylenol in 2 1/2 hours. Take the tessalon pearles for cough. Use the inhaler every 4 hours. Follow up with your doctor in 2-4 days and return for any new or worsening symptoms. Prescriptions: Albuterol Inhaler [Ventolin Hfa Inhaler] 2 puff INHALATION QID #8 gm Referrals: Alberto Merino MD [Primary Care Provider] - 1-2 days
[2024-12-19] MEDS: IBUPROFEN 600 MG TAB PO STA (18:46)
[2024-12-19 19:01] LABS: Influenza A Detected (Not Detectd); Influenza B Not Detected (Not Detectd); RSV Not Detected (Not Detectd)
--- NOTE | 2024-12-19 19:35 | XR ---
EXAMINATION TYPE: XR chest 2V DATE OF EXAM: 12/19/2024 7:12 PM COMPARISON: 09/24/2021 CLINICAL INDICATION: Female, 54 years old with history of fever, cough, TECHNIQUE: XR chest 2V view(s) obtained. FINDINGS: The heart size is normal. The pulmonary vasculature is normal. The lungs are clear. IMPRESSION: 1. No acute pulmonary process. [facility], , 12/19/2024 7:33 PM
[2024-12-19 20:19] VITALS: BP 107/68; PULSE 104; TEMP 100.8
== END 2024-12-19 20:50 | disposition home or self-care (01) ==
LOC: EC 16:51
DX: J10.1 Influenza due to other identified influenza virus with other respiratory manifestations (principal); E11.9 Type 2 diabetes mellitus without complications; Z88.1 Allergy status to other antibiotic agents; Z91.012 Allergy to eggs; Z91.010 Allergy to peanuts; Z91.013 Allergy to seafood; Z88.8 Allergy status to other drugs, medicaments and biological substances
CPT/HCPCS: 71046; 87636; 99284